=== PATIENT | female | born 1975 ===

== ENCOUNTER 2020-07-10 13:07 | Outpatient (REF) | payer OTHER, SELFPAY ==
[2020-07-10 13:31] LABS: COVID-19 Test Negative (Negative); IDNOW Serial# 55D5AD1C
== END 2020-07-10 13:08 | disposition home or self-care (01) ==
LOC: HO.EMPCOV 13:07
PROVIDERS: Visit Provider Internal Medicine
DX: Z20.828 Contact with and (suspected) exposure to other viral communicable diseases (principal)
CPT/HCPCS: 87635; C9803

== ENCOUNTER 2020-07-13 11:34 | Outpatient (REF) | payer OTHER, SELFPAY ==
[2020-07-13 12:01] LABS: COVID-19 Test Negative (Negative)
== END 2020-07-13 11:35 | disposition home or self-care (01) ==
LOC: HO.EMPCOV 11:34
PROVIDERS: PCP Internal Medicine; Visit Provider Internal Medicine
DX: Z20.828 Contact with and (suspected) exposure to other viral communicable diseases (principal)
CPT/HCPCS: 87635; C9803

== ENCOUNTER 2020-11-12 11:35 | Outpatient (REF) | payer OTHER, SELFPAY ==
[2020-11-12 11:55] LABS: COVID-19 Test Negative (Negative); IDNOW Serial# 55D5AD1C
== END 2020-11-12 11:36 | disposition home or self-care (01) ==
LOC: HO.EMPCOV 11:35
PROVIDERS: Visit Provider Internal Medicine
DX: Z20.822 Contact with and (suspected) exposure to COVID-19 (principal)
CPT/HCPCS: 36415; 87635; C9803

== ENCOUNTER 2020-12-11 14:48 | Outpatient (REF) | payer OTHER, SELFPAY | END 2020-12-11 14:49 | disposition home or self-care (01) | LOC: HO.LAB 14:48 | PROVIDERS: Visit Provider Internal Medicine | DX: Z20.822 Contact with and (suspected) exposure to COVID-19 (principal) | CPT/HCPCS: C9803; U0003; U0005 ==

== ENCOUNTER 2021-04-02 08:24 | Outpatient (REF) | payer OTHER, SELFPAY ==
[2021-04-02 10:13] LABS: MANUAL DIFF FLAG NO
[2021-04-02 10:19] LABS: Basophils Percent Auto 0.3 % (0-2); Eosinophils Absolute Auto 0.1 X10*3/uL (0.0-0.4); Eosinophils Percent Auto 1.6 % (0-4); Imm Gran Abs Auto 0.01 X10*3/uL (0.00-0.03); Imm Gran Pct Auto 0.3 % (0.0-0.4); Lymphocytes Absolute Auto 0.6 X10*3/uL (1.2-4.9); Lymphocytes Percent Auto 19.9 % (20-40); Mean Corpuscular HGB Conc 31.3 g/dl (31.0-35.0); Mean Corpuscular Hemoglobin 32.3 pg (27.0-33.0); Mean Corpuscular Volume 103.1 fL (80-98); Mean Platelet Volume 12.7 fL (9.4-12.3); Monocytes Absolute Auto 0.2 X10*3/uL (0.1-1.2); Monocytes Percent Auto 6.5 % (2-11); Neutrophils Absolute Auto 2.3 X10*3/uL (2.0-8.3); Neutrophils Percent Auto 71.4 % (45-73); Platelet Count 167 X10*3/uL (160-400); Red Blood Count 1.95 X10*6/uL (4.20-5.50); Red Cell Distribution Width 16.8 % (11.0-16.0); White Blood Count 3.2 X10*3/uL (4.8-10.8)
[2021-04-02 10:29] LABS: Estimated Average Glucose 97 mg/dL
[2021-04-02 10:47] LABS: Hemoglobin 6.3 g/dl (12.0-16.0)
[2021-04-02 10:48] LABS: Hematocrit 20.1 % (37-47)
[2021-04-02 10:55] LABS: Creatinine Urine 231.34 mg/dL; Microalbum/Creatinine Ratio Ur 12.1 ug/mg cr
[2021-04-02 10:57] LABS: Alanine Aminotransferase 13 U/L (0-31); Albumin Level 3.3 g/dL (3.5-5.0); Alkaline Phosphatase 46 U/L (39-117); Anion Gap 9 (12-20); Aspartate Amino Transferase 18 U/L (5-31); Bilirubin Total 0.2 mg/dL (0.0-1.0); Blood Urea Nitrogen 13 mg/dL (9-16); Calcium 7.8 mg/dL (8.4-10.2); Carbon Dioxide 23 mmol/L (22-29); Chloride 112 mmol/L (96-108); Estimated Glomerular Filt Rate > 60; Glucose Random 126 mg/dL (60-115); Iron 44 mcg/dL (30-160); Sodium 140 mmol/L (135-145); Total Protein 5.2 g/dL (6.5-8.0)
[2021-04-02 10:58] LABS: Percent Iron Saturation 20 % (15-50); Total Iron Binding Capacity 221 mcg/dL (228-428); Unsaturated Iron Binding 177 ug/dL
[2021-04-02 11:14] LABS: Ferritin 47 ng/mL (10-250)
== END 2021-04-02 08:25 | disposition home or self-care (01) ==
LOC: HO.LAB 08:24
PROVIDERS: Absent Provider Internal Medicine; PCP Internal Medicine; Visit Provider Internal Medicine
DX: E55.9 Vitamin D deficiency, unspecified (principal); D50.0 Iron deficiency anemia secondary to blood loss (chronic); E10.649 Type 1 diabetes mellitus with hypoglycemia without coma
CPT/HCPCS: 36415; 80053; 82043; 82306; 82728; 83036; 83540; 85025

== ENCOUNTER 2021-04-02 16:22 | Emergency (ER) | payer OTHER, SELFPAY ==
[2021-04-02] VITALS (8 sets, daily range): BP systolic 90–123; BP diastolic 49–68; PULSE 67–89; RESP 16–18; TEMP 36.7–37.1; O2SAT 100; BMI 18.6
--- NOTE | ~2021-04-02 | US_ITS ---
EXAMINATION:US pelvic and transvaginal CLINICAL INFORMATION: Reason for Exam bleeding x 2.5 weeks, anemia 6.6 COMPARISON: No priors available. LMP: 2 weeks ago FINDINGS: UTERUS: The uterus is anteverted. Size: 10.4 x 5.9 x 6.6 cm. Uterine mass: There is no uterine mass. Cervix: There are probably nabothian cysts otherwise Grossly unremarkable. Endometrium: No ultrasound evidence of endometrial lesion. Hypertrophic endometrial thickness measures 6.2 cm. ADNEXA: Normal Right ovary: Right ovary not visualized might have been obscured by bowel gas. Left ovary: Normal in size. Doppler exam: Normal Doppler flow identified in both ovaries. FREE FLUID: Trace amount of free fluid. OTHER FINDINGS: None US/US pelvic and transvaginal IMPRESSION: Physiologically hypertrophic endometrium 2.2 cm. Right ovary not visualized might have been obscured by bowel gas.
--- NOTE | 2021-04-02 18:14 | ECG_ITS ---
Test Reason : DIZZYNESS Blood Pressure : / mmHG Vent. Rate : 078 BPM Atrial Rate : 078 BPM P-R Int : 162 ms QRS Dur : 078 ms QT Int : 372 ms P-R-T Axes : 065 040 046 degrees QTc Int : 424 ms Normal sinus rhythm with sinus arrhythmia Normal ECG No previous ECGs available Referred By: Ailyn Oneill Electronically Signed By:Lalit Lew
--- NOTE | 2021-04-02 18:15 | ED.FEMALEGU ---
HPI - Female Genitourinary General Chief complaint: Vaginal Bleeding Stated complaint: heavy bleeding Time Seen by Provider: 04/02/21 18:13 Source: patient and old records reviewed Mode of arrival: ambulatory Limitations: no limitations History of Present Illness HPI Narrative: 45 yo female with hx of FE deficiency anemia, DM c/o heavy vaginal bleeding x 2.5 weeks although today is much less, no prior bouts like this, found out her Hgb was 6.6 today c/o fatigue, weakness MD elicited complaint: vaginal bleeding Onset (ago): week(s) (2.5) Location of symptoms: vaginal Severity: severe Quality of pain: cramping Consistency: constant Vaginal bleeding: moderate, heavy and clots Exacerbating factors: none Relieving factors: none Associated symptoms: headaches and weakness Treatment prior to arrival: none Related Data Home Medications Medication Instructions Recorded Confirmed cholecalciferol (vitamin D3) 25 25 mcg PO DAILY 11/23/20 mcg (1,000 unit) capsule ferrous fumarate 325 mg (106 mg 325 mg PO DAILY 11/23/20 iron) tablet insulin lispro 100 unit/mL 70 unit SUBCUT 11/23/20 subcutaneous solution multivitamin 1 tab PO DAILY 11/23/20 Previous Rx's Medication Instructions Recorded diclofenac sodium 1 % topical gel 2 g TOPICAL QID PRN #100 g 11/23/20 triamcinolone acetonide 0.1 % 1 appl TOPICAL DAILY 10 Days #30 g 11/26/20 topical cream medroxyprogesterone 10 mg tablet 10 mg PO DAILY 9 Days #9 tab 04/03/21 (Provera) Allergies Allergy/AdvReac Type Severity Reaction Status Date / Time No Known Allergies Allergy Verified 04/02/21 17:02 Review of Systems Review of Systems: Constitutional : No Weight loss, No Fever, No Chills, No Fatigue, No Malaise ENT/Mouth : No sore throat, No Rhinorrhea Eyes: No Eye Pain, No Swelling, No Redness Cardiovascular : No Chest Pain, pos SOB, No Dyspnea on Exertion, No Orthopnea, No Edema, No Palpitations Respiratory : No Cough, No Sputum, No Wheezing Gastrointestinal : pos Nausea, No Vomiting, No Diarrhea, No Constipation, No abdominal Pain, No Hematochezia, No Melena Genitourinary : No Dysuria, No Urinary Frequency, No Hematuria, pos vag bleeding Musculoskeletal : No joint pain, No Myalgias, No Joint Swelling Skin : No Skin Lesions, No rash Neuro : pos Weakness, No Numbness, No Dizziness, No Headache Psych : No Anxiety/Panic, No Depression Heme/Lymph: No Bruising, No Bleeding,No Lymphadenopathy Endocrine : No Polyuria, No Polydipsia All other systems reviewed and are negative [facility] Past Medical History Attestation statement: The following information was validated with the patient. Medical History Diabetes mellitus, insulin dependent (IDDM), controlled Eczema of both hands Iron deficiency anemia Shoulder pain, right Surgical History No significant past surgical history Family History Family History Father Hx of diabetes mellitus History of hypertension Hx of hyperlipidemia Mother History of hypertension Hx of diabetes mellitus Hx of hyperlipidemia Social History Social History (Updated 04/02/21 @ 18:32 by Ailyn Oneill DO) Alcohol intake: never Patient Tobacco Use Status: Never used Tobacco Advance Directives: No Advance Directives Information Provided: No Patient : No Physical Exam Vital Signs: Vital Signs: Last Vital Signs Temp 98.1 F 04/03/21 00:09 Pulse 69 04/03/21 00:09 Resp 16 04/03/21 00:09 BP 97/54 L 04/03/21 00:09 Pulse Ox 100 04/03/21 00:09 Body Mass Index 18.6 Appearance: Alert. Oriented X3. No acute distress. Eyes: Pupils equal, round and reactive to light. ENT: Pharynx normal. Neck: Normal inspection. Neck supple. CVS: Normal heart rate and rhythm. Pulses normal. Respiratory: No respiratory distress. Breath sounds normal. Abdomen: Soft and nontender. : deferred as the bleeding has stopped Skin: Skin warm and dry. pale skin color. Normal skin turgor. Extremities: No lower extremity edema. No calf ttp Neuro: Oriented X 3. No motor deficit. No sensory deficit. Course Course Course Narrative: feels much better, offered admission but she refuses hemoglobin up to 8.3 patient wants to go home, hospitalist did offer admission but it was declined plans for hematology follow up MDM - Female Genitourinary MDM Narrative Medical decision making narrative: 45 yo female with hx of FE deficiency anemia, DM c/o heavy vaginal bleeding x 2.5 weeks although today is much less, no prior bouts like this, found out her Hgb was 6.6 today c/o fatigue, weakness at this time 2 units of PRBC ordered, EKG, US to evaluate for fibroids/irregular endometrium, IVF, EKG, dispo per results and findings, she notes that the bleeding has improved. Dispo per results and findings, may improve with transfusion and then start on provera Lab Data Result diagrams: 04/03/21 01:21 Labs: Lab Results 04/02/21 04/03/21 Range/Units 17:11 01:21 Hgb 8.3 L D (12.0-16.0) g/dl Blood Type A Positive Antibody Screen NEGATIVE Crossmatch See Detail ECG Data Attestation: I personally reviewed and interpreted this ECG as follows: ECG interpretation date: 04/02/21 ECG interpretation time: 19:57 Interpretation: Rate: 78 Rhythm: NSR [place]: normal Normal P waves. Normal MIKE. Normal QRS complex. ST T wave : normal no DAVEY qTC: normal prior studies: no acute ischemia The study has been interpreted contemporaneously by me. . Critical Care Time Critical Care Time Critical Care Time: Yes Total Critical Care Time: 35 Attestation: 2 units of blood transfusion I attest to this time spent taking care of the patient Discharge Plan Discharge Clinical Impression: Menometrorrhagia, Anemia Patient Disposition: Home, Self-Care Instructions: Dysfunctional Uterine Bleeding (ED), Anemia (ED) Additional Instructions: return to ED for any worsening symptoms or concerns CONTINUE IRON SUPPLEMENTATION YOU NEED TO SEE YOUR PRIMARY CARE DOCTOR TO FOLLOW YOUR BLOOD COUNTS AND OBGYN Prescriptions: New medroxyprogesterone [Provera] 10 mg tablet 10 mg PO DAILY 9 Days Qty: 9 RF: 0 No Action insulin lispro 100 unit/mL solution 70 unit subcut RF: 0 ferrous fumarate 325 mg (106 mg iron) tablet 325 mg PO DAILY RF: 0 multivitamin Tablet 1 tab PO DAILY RF: 0 cholecalciferol (vitamin D3) 25 mcg (1,000 unit) capsule 25 mcg PO DAILY RF: 0 diclofenac sodium 1 % gel 2 g topical QID PRN (Reason: joint pain) Qty: 100 RF: 1 triamcinolone acetonide 0.1 % cream 1 appl topical DAILY 10 Days Qty: 30 RF: 0
--- NOTE | 2021-04-02 19:05 | PC.NURSE ---
REPORT TAKEN FROM JESSICA BUSCH, PT OFF FLOOR TO US. AWAITING RETURN FOR BLOOD TRANSFUSION.
--- NOTE | 2021-04-02 20:10 | PC.NURSE ---
PT RETURNED FROM US, A&Ox3 SKIN PWD RESPIRATIONS EVEN UNLABORED, REPORTS FEELING TIRED, DENIES PAIN. REPORTS CHANGING TAMPON x3 SINCE 0700 THIS MORNING. STATES BLEEDING IMPROVED FROM PREVIOUS DAYS. AWAITING BLOOD FOR TRANSFUSION-CONSENT SIGNED IN CHART, AWARE OF PLAN OF CARE.
[2021-04-02] MEDS: medroxyPROGESTERone Acetate 5 MG TABLET 10 MG PO (20:15)
--- NOTE | 2021-04-02 20:34 | PC.NURSE ---
BLOOD TRANSFUSION INITIATED, NO S/S TRANSFUSION REACTION AT THIS TIME. VSS. SKIN PWD RESPIRATIONS EVEN UNLABORED. WILL CONTINUE TO MONITOR.
--- NOTE | 2021-04-02 22:54 | PC.NURSE ---
PT AMB TO BATHROOM WITH STEADY GAIT, REPORTS CONTINUED FATIGUE. SECOND UNIT OF BLOOD HUNG AND TRANSFUSING WITH NO S/S REACTION. VSS.
[2021-04-03 00:07] VITALS: BP 97/54; PULSE 69; RESP 16
[2021-04-03 00:09] VITALS: BP 97/54; PULSE 69; RESP 16; TEMP 36.7; O2SAT 100
[2021-04-03 01:26] LABS: Hemoglobin 8.3 g/dl (12.0-16.0)
== END 2021-04-03 02:19 | disposition home or self-care (01) ==
PROVIDERS: Emergency Provider Emergency Medicine; PCP Internal Medicine
DX: D50.9 Iron deficiency anemia, unspecified (principal); N92.1 Excessive and frequent menstruation with irregular cycle; E11.9 Type 2 diabetes mellitus without complications; Z79.4 Long term (current) use of insulin; Z79.899 Other long term (current) drug therapy
CPT/HCPCS: 36415; 36430; 76830; 76856; 85018; 86850; 86900; 86901; 86923; 93005; 99285; 99291; P9016

== ENCOUNTER → 2021-04-06 07:50 | Outpatient (BNV) | payer OTHER, SELFPAY | PROVIDERS: PCP Internal Medicine; Visit Provider Internal Medicine Medical Oncology | DX: D50.9 Iron deficiency anemia, unspecified (principal) | CPT/HCPCS: 99203; 99213 ==

== ENCOUNTER 2021-04-06 08:47 | Outpatient (REF) | payer OTHER, SELFPAY ==
[2021-04-06 09:50] LABS: MANUAL DIFF FLAG NO
[2021-04-06 10:04] LABS: Basophils Percent Auto 0.3 % (0-2); Eosinophils Percent Auto 0.8 % (0-4); Hematocrit 29.4 % (37-47); Hemoglobin 9.4 g/dl (12.0-16.0); Imm Gran Abs Auto 0.01 X10*3/uL (0.00-0.03); Imm Gran Pct Auto 0.3 % (0.0-0.4); Immature Retic Fraction 19.7 % (3.0-15.9); Lymphocytes Absolute Auto 0.6 X10*3/uL (1.2-4.9); Mean Corpuscular Hemoglobin 32.1 pg (27.0-33.0); Mean Corpuscular Volume 100.3 fL (80-98); Monocytes Absolute Auto 0.3 X10*3/uL (0.1-1.2); Monocytes Percent Auto 8.7 % (2-11); Neutrophils Absolute Auto 2.6 X10*3/uL (2.0-8.3); Neutrophils Percent Auto 72.9 % (45-73); Platelet Count 184 X10*3/uL (160-400); Red Blood Count 2.93 X10*6/uL (4.20-5.50); Red Cell Distribution Width 18.2 % (11.0-16.0); Retic HGB Equivalent 34.9 pg (30.0-35.0); Reticulocyte Percent 7.8 % (0.5-1.8); White Blood Count 3.6 X10*3/uL (4.8-10.8)
[2021-04-06 10:17] LABS: Lactate Dehydrogenase 179 U/L (122-220)
[2021-04-06 10:39] LABS: Thyroid Stimulating Hormone 1.22 uIU/mL (0.32-4.0)
[2021-04-06 10:54] LABS: Folate 10.3 ng/mL (> or = 4.0); Vitamin B12 472 pg/mL (200-900)
[2021-04-13 07:14] LABS: Prometheus Celiac Genetics SEE SEPERATE REPORT
== END 2021-04-06 08:48 | disposition home or self-care (01) ==
LOC: HO.MDS 08:47
PROVIDERS: Visit Provider Internal Medicine Medical Oncology
DX: D50.9 Iron deficiency anemia, unspecified (principal)
CPT/HCPCS: 36415; 81382; 82607; 82746; 83615; 84443; 85025; 85045; 96365; 96375; J1439; J2405

== ENCOUNTER 2021-04-12 14:38 | Outpatient (REF) | payer OTHER, SELFPAY ==
[2021-04-13 10:59] LABS: CT PCR NOT DETECTED (Not Detect.); NG PCR NOT DETECTED (Not Detect.)
[2021-04-14 23:41] LABS: HPV mRNA E6/E7 rflx Not Detected (Not Detected)
== END 2021-04-12 14:39 | disposition home or self-care (01) ==
LOC: HO.LAB 14:38
PROVIDERS: PCP Internal Medicine; Visit Provider Obstetrics & Gynecology
DX: Z01.419 Encounter for gynecological examination (general) (routine) without abnormal findings (principal); N93.8 Other specified abnormal uterine and vaginal bleeding; Z79.899 Other long term (current) drug therapy
CPT/HCPCS: 58100; 58300; 87491; 87591; 87624; 88142; 88305; J7298

== ENCOUNTER 2021-04-16 13:03 | Outpatient (REF) | payer OTHER, SELFPAY | END 2021-04-16 13:04 | disposition home or self-care (01) | LOC: HO.MDS 13:03 | PROVIDERS: PCP Internal Medicine; Visit Provider Internal Medicine Medical Oncology | DX: D50.9 Iron deficiency anemia, unspecified (principal) | CPT/HCPCS: 96365; J1439; J2405 ==

== ENCOUNTER → 2021-04-26 15:49 | Outpatient (BNVA) | payer OTHER, SELFPAY | PROVIDERS: Visit Provider Obstetrics & Gynecology ==

== ENCOUNTER 2021-05-07 08:03 | Outpatient (REF) | payer OTHER, SELFPAY ==
[2021-05-07 09:17] LABS: MANUAL DIFF FLAG SCAN; Monocytes Absolute Auto 0.2 X10*3/uL (0.1-1.2); SCAN SMEAR FLAG 1
[2021-05-07 09:19] LABS: Basophils Percent Auto 0.4 % (0-2); Eosinophils Percent Auto 1.6 % (0-4); Hematocrit 37.9 % (37-47); Hemoglobin 12.4 g/dl (12.0-16.0); Lymphocytes Absolute Auto 0.6 X10*3/uL (1.2-4.9); Lymphocytes Percent Auto 23.5 % (20-40); Mean Corpuscular HGB Conc 32.7 g/dl (31.0-35.0); Mean Corpuscular Hemoglobin 33.3 pg (27.0-33.0); Mean Corpuscular Volume 101.9 fL (80-98); Mean Platelet Volume 13.3 fL (9.4-12.3); Monocytes Percent Auto 6.3 % (2-11); Neutrophils Absolute Auto 1.7 X10*3/uL (2.0-8.3); Neutrophils Percent Auto 68.2 % (45-73); Platelet Count 120 X10*3/uL (160-400); Red Blood Count 3.72 X10*6/uL (4.20-5.50); White Blood Count 2.6 X10*3/uL (4.8-10.8)
[2021-05-07 09:20] LABS: PLT ABN DIST 1
[2021-05-07 09:27] LABS: Estimated Average Glucose 82 mg/dL; Hemoglobin A1c % 4.5 %
[2021-05-07 09:34] LABS: Creatinine Urine 147.66 mg/dL
[2021-05-07 09:39] LABS: Cholesterol 162 mg/dL; HDL Cholesterol 59 mg/dL; Iron 80 mcg/dL (30-160); LDL Cholesterol Calculated 95 mg/dl; Percent Iron Saturation 34 % (15-50); Total Iron Binding Capacity 236 mcg/dL (228-428); Triglycerides 40 mg/dL; Unsaturated Iron Binding 156 ug/dL
[2021-05-07 09:46] LABS: SLIDE REVIEW VERIFIED
[2021-05-07 09:47] LABS: Alanine Aminotransferase 10 U/L (0-31); Alkaline Phosphatase 59 U/L (39-117); Anion Gap 9 (12-20); Aspartate Amino Transferase 13 U/L (5-31); Bilirubin Total 0.4 mg/dL (0.0-1.0); Blood Urea Nitrogen 15 mg/dL (9-16); Calcium 8.8 mg/dL (8.4-10.2); Carbon Dioxide 26 mmol/L (22-29); Chloride 109 mmol/L (96-108); Estimated Glomerular Filt Rate > 60; Glucose Random 128 mg/dL (60-115); Potassium 4.2 mmol/L (3.3-5.1); Sodium 140 mmol/L (135-145); Total Protein 6.1 g/dL (6.5-8.0)
[2021-05-07 10:02] LABS: Ferritin 165 ng/mL (10-250)
[2021-05-07 10:03] LABS: TSH reflex Free T4 0.89 uIU/mL (0.32-4.0)
[2021-05-07 10:20] LABS: Folate 12.5 ng/mL (> or = 4.0); Vitamin B12 513 pg/mL (200-900)
[2021-05-11 14:46] LABS: Transglutaminase IgA 1 U/mL
== END 2021-05-07 08:04 | disposition home or self-care (01) ==
LOC: HO.LAB 08:03
PROVIDERS: Absent Provider Internal Medicine Medical Oncology; PCP Internal Medicine; Referring Provider Obstetrics & Gynecology; Visit Provider Internal Medicine
DX: D50.9 Iron deficiency anemia, unspecified (principal); L30.9 Dermatitis, unspecified
CPT/HCPCS: 36415; 80053; 80061; 82043; 82306; 82607; 82728; 82746; 83036; 83516; 83540; 84443; 85025

== ENCOUNTER 2021-05-18 08:14 | Outpatient (REF) | payer OTHER, SELFPAY | END 2021-05-18 08:15 | disposition home or self-care (01) | LOC: HO.LAB 08:14 | PROVIDERS: PCP Internal Medicine; Visit Provider Obstetrics & Gynecology | DX: Z30.431 Encounter for routine checking of intrauterine contraceptive device (principal); R87.615 Unsatisfactory cytologic smear of cervix; N93.8 Other specified abnormal uterine and vaginal bleeding | CPT/HCPCS: 88142 ==

== ENCOUNTER 2021-06-21 14:39 | Outpatient (REF) | payer OTHER, SELFPAY ==
--- NOTE | ~2021-06-21 | MM_ITS ---
EXAMINATION: MM SCREENING DIGITAL BREAST TOMOSYNTHESIS, BILATERAL CLINICAL INFORMATION: Screening. Asymptomatic. The lifetime risk of breast cancer based on the Tyrer-Cuzick Model is 14.3%. COMPARISON: Mammography: None TECHNIQUE: Digital breast tomosynthesis is performed in both the craniocaudal and mediolateral oblique views along with computer-aided detection (CAD). Synthesized 2D images are generated from the tomosynthesis. FINDINGS: The breasts are extremely dense, which lowers the sensitivity of mammography (ACR BI-RADS breast composition Category d). There are some vascular calcifications noted within the left breast seen with tomosynthesis. There is a questioned mass deep medial aspect on craniocaudal view of the right breast most likely representing sternalis muscle; however, there is some lobulation to the visualized portions of its margin and therefore, patient will be recalled for repeat craniocaudal view and cleavage view of the right breast. MM/MM tomosynthesis screening BI IMPRESSION: Probable sternalis muscle right breast for further evaluation as described. ASSESSMENT: BI-RADS 0: Incomplete - Need Additional Imaging Evaluation RECOMMENDATION: 1. Additional views of the right breast. 2. Targeted ultrasound if warranted after review of the additional views. 3. Radiology department staff will contact the patient for additional imaging. This patient's information was entered into a reminder system with a target due date for their next mammogram.
== END 2021-06-21 14:40 | disposition home or self-care (01) ==
LOC: HO.MAMMO 14:39
PROVIDERS: PCP Internal Medicine; Visit Provider Obstetrics & Gynecology
DX: Z12.31 Encounter for screening mammogram for malignant neoplasm of breast (principal)
CPT/HCPCS: 77063; 77067

== ENCOUNTER 2021-06-30 07:54 | Outpatient (REF) | payer OTHER, SELFPAY ==
--- NOTE | ~2021-06-30 | MM_ITS ---
EXAMINATION: MM DIAGNOSTIC DIGITAL BREAST TOMOSYNTHESIS, RIGHT US DIAGNOSTIC ULTRASOUND BREAST, RIGHT CLINICAL INFORMATION: Recall from screening for question of asymmetric density posterior medial right breast. TC Score 14%. COMPARISON: Mammography: 06/21/2021 TECHNIQUE: Digital breast tomosynthesis is performed. 2D images are generated from the tomosynthesis. The following views are obtained: CC, cleavage, spot CC Ultrasound right breast is targeted to the posterior medial breast 2:00 through 6:00 position. Grayscale imaging and color Doppler are performed without and with harmonics. FINDINGS: The breasts are heterogeneously dense, which may obscure small masses (ACR BI-RADS breast composition Category c). The additional views show no underlying mass or architectural abnormality. In retrospect, the asymmetric density suggested on synthesized right CC screening view shows no correlate on tomography. Ultrasound shows no cystic or solid mass, architectural abnormality, or chest wall lesion. Results are discussed with the patient at time of visit. MM/MM tomosynthesis added views R IMPRESSION: Additional views show normal fibroglandular tissue. Unremarkable targeted right breast ultrasound. ASSESSMENT: BI-RADS 1: Negative RECOMMENDATION: Routine annual mammography screening. This patient's information was entered into a reminder system with a target due date for their next mammogram.
== END 2021-06-30 07:55 | disposition home or self-care (01) ==
LOC: HO.MAMMO 07:54
PROVIDERS: PCP Internal Medicine; Visit Provider Obstetrics & Gynecology
DX: R92.2 Inconclusive mammogram (principal)
CPT/HCPCS: 76642; 77061; 77065

== ENCOUNTER 2022-05-19 08:42 | Outpatient (REF) | payer OTHER, SELFPAY ==
[2022-05-19 19:50] LABS: CT PCR NOT DETECTED (Not Detect.); NG PCR NOT DETECTED (Not Detect.)
== END 2022-05-19 08:43 | disposition home or self-care (01) ==
LOC: HO.LNP 08:42
PROVIDERS: Visit Provider Obstetrics & Gynecology
DX: Z11.3 Encounter for screening for infections with a predominantly sexual mode of transmission (principal); R10.2 Pelvic and perineal pain
CPT/HCPCS: 81025; 87491; 87591

== ENCOUNTER 2022-05-27 14:13 | Outpatient (REF) | payer OTHER, SELFPAY ==
--- NOTE | ~2022-05-27 | US_ITS ---
EXAMINATION: US PELVIS CLINICAL INFORMATION: Pelvic and perineal pain; the last menstrual period was on 05/21/2022. COMPARISON: None TECHNIQUE: Ultrasound of the pelvis is performed using both transabdominal and transvaginal transducers along with Doppler. Transvaginal imaging is performed due to inadequate visualization transabdominally. FINDINGS: UTERUS: The uterus is anteverted and anteflexed. The uterus measures 9.8 x 5.7 x 5.3 cm. Nabothian cysts are seen within the cervix. The double wall endometrial thickness is 0.6 mm. An intrauterine device is seen, properly situated within the endometrial canal. The uterus is smooth in contour and has normal myometrial echogenicity. No visible fibroid. Fibroids: There is 1 fibroid seen. 1. Location: Upper rightward uterine body. Size: 0.6 x 0.6 x 0.6 cm. Fibroid characteristics: Hypoechoic. ADNEXA: The right ovary is not visualized. The left ovary is normal in echotexture, measuring 7.2 x 4.4 x 4.5 cm (volume 75.3 mL). The left ovary contains dominant 3.4 x 4.4 x 4.1 cm and 3.8 x 2.5 x 3.2 cm anechoic, simple cysts. There is normal color flow to the adnexa. There is no ovarian torsion. There is no pelvic ascites or fluid collection. US/US pelvic and transvaginal IMPRESSION: 1. There are benign, simple left ovarian cysts, as detailed. No ultrasound followup is recommended. 2. The right ovary is not visualized. 3. An intrauterine device is seen, properly situated within the endometrial canal. 4. A small uterine fibroid is seen. 5. Nabothian cysts are seen within the cervix.
== END 2022-05-27 14:14 | disposition home or self-care (01) ==
LOC: HO.US 14:13
PROVIDERS: Visit Provider Obstetrics & Gynecology
DX: R10.2 Pelvic and perineal pain (principal)
CPT/HCPCS: 76830; 76856

== ENCOUNTER 2022-06-15 10:35 | Outpatient (REF) | payer OTHER, SELFPAY ==
[2022-06-15 14:20] LABS: Hematocrit 40.7 % (37.0-47.0); Hemoglobin 13.5 g/dl (12.0-16.0); Mean Corpuscular HGB Conc 33.2 g/dl (31.0-35.0); Mean Corpuscular Hemoglobin 31.4 pg (27.0-33.0); Mean Corpuscular Volume 94.7 fL (80.0-98.0); Mean Platelet Volume 12.7 fL (9.4-12.3); Platelet Count 140 X10*3/uL (160-400); White Blood Count 4.3 X10*3/uL (4.8-10.8)
== END 2022-06-15 10:36 | disposition home or self-care (01) ==
LOC: HO.10HDL 10:35
PROVIDERS: Visit Provider Obstetrics & Gynecology
DX: N93.8 Other specified abnormal uterine and vaginal bleeding (principal)
CPT/HCPCS: 36415; 85027

== ENCOUNTER 2022-06-24 08:04 | Outpatient (REF) | payer OTHER, SELFPAY ==
[2022-06-24 08:19] LABS: MANUAL DIFF FLAG NO
[2022-06-24 08:41] LABS: Basophils Percent Auto 0.6 % (0-2); Eosinophils Absolute Auto 0.1 X10*3/uL (0.0-0.4); Eosinophils Percent Auto 2.2 % (0-4); Hemoglobin 13.7 g/dl (12.0-16.0); Imm Gran Abs Auto 0.01 X10*3/uL (0.00-0.03); Imm Gran Pct Auto 0.3 % (0.0-0.4); Lymphocytes Absolute Auto 0.9 X10*3/uL (1.2-4.9); Lymphocytes Percent Auto 28.5 % (20-40); Mean Corpuscular HGB Conc 33.4 g/dl (31.0-35.0); Mean Corpuscular Hemoglobin 31.6 pg (27.0-33.0); Mean Corpuscular Volume 94.5 fL (80.0-98.0); Monocytes Absolute Auto 0.3 X10*3/uL (0.1-1.2); Monocytes Percent Auto 10.1 % (2-11); Neutrophils Absolute Auto 1.8 x10*3/uL (2.0-8.3); Neutrophils Percent Auto 58.3 % (45-73); Platelet Count 144 X10*3/uL (160-400); Red Blood Count 4.34 X10*6/uL (4.20-5.50); Red Cell Distribution Width 11.8 % (11.0-16.0); White Blood Count 3.2 X10*3/uL (4.8-10.8)
[2022-06-24 08:50] LABS: Estimated Average Glucose 120 mg/dL; Hemoglobin A1c % 5.8 %
[2022-06-24 09:08] LABS: Alanine Aminotransferase 9 U/L (0-31); Albumin Level 4.1 g/dL (3.5-5.0); Alkaline Phosphatase 60 U/L (39-117); Anion Gap 12 (12-20); Aspartate Amino Transferase 16 U/L (5-31); Bilirubin Total 0.3 mg/dL (0.0-1.0); Blood Urea Nitrogen 13 mg/dL (9-16); Carbon Dioxide 27 mmol/L (22-29); Chloride 106 mmol/L (96-108); Cholesterol 190 mg/dL; Estimated Glomerular Filt Rate > 60; Glucose Random 143 mg/dL (60-115); HDL Cholesterol 63 mg/dL; LDL Cholesterol Calculated 119 mg/dl; Potassium 4.4 mmol/L (3.3-5.1); Sodium 141 mmol/L (135-145); Total Protein 6.9 g/dL (6.5-8.0); Triglycerides 41 mg/dL
[2022-06-24 09:23] LABS: TSH reflex Free T4 1.05 uIU/mL (0.32-4.0); Vitamin D 25-OH Total 44.7 ng/mL (>30)
== END 2022-06-24 08:05 | disposition home or self-care (01) ==
LOC: HO.LAB 08:04
PROVIDERS: PCP Internal Medicine; Visit Provider Internal Medicine
DX: E10.649 Type 1 diabetes mellitus with hypoglycemia without coma (principal)
CPT/HCPCS: 36415; 80053; 80061; 82306; 83036; 84443; 85025

== ENCOUNTER 2022-07-27 14:28 | Outpatient (REF) | payer OTHER, SELFPAY ==
[2022-07-27 15:36] LABS: C Reactive Protein < 0.04 mg/dL (< or = 0.50)
[2022-07-27 15:54] LABS: Erythrocyte Sedimentation Rate 10 MM/HR (0-20)
[2022-07-27 22:57] LABS: Creatinine Urine 92.51 mg/dL; Total Protein Urine Random < 7 mg/dL (<12)
[2022-07-29 21:13] LABS: Anti DNA DS Antibody 2 IU/mL; Antibody to SS-A Antigen <1.0 NEG AI (<1.0 NEG); Antibody to SS-B Antigen <1.0 NEG AI (<1.0 NEG); SM/Ribonucleoprotein Ab <1.0 NEG AI (<1.0 NEG); Smith Protein <1.0 NEG AI (<1.0 NEG)
== END 2022-07-27 14:29 | disposition home or self-care (01) ==
LOC: HO.LAB 14:28
PROVIDERS: PCP Internal Medicine; Visit Provider Internal Medicine Rheumatology
DX: D69.6 Thrombocytopenia, unspecified (principal); M25.9 Joint disorder, unspecified
CPT/HCPCS: 36415; 84156; 85652; 86140; 86225; 86235

== ENCOUNTER 2023-03-09 12:06 | Outpatient (REF) | payer OTHER, SELFPAY ==
[2023-03-09 13:01] LABS: COVID-19 Test Negative (Negative); IDNOW Serial# 08D9AD1C
[2023-03-09 13:44] LABS: Basophils Percent Auto 0.4 % (0-2); Eosinophils Absolute Auto 0.1 X10*3/uL (0.0-0.4); Eosinophils Percent Auto 1.7 % (0-4); Hematocrit 38.7 % (37.0-47.0); Hemoglobin 12.8 g/dl (12.0-16.0); Imm Gran Abs Auto 0.01 X10*3/uL (0.00-0.03); Imm Gran Pct Auto 0.2 % (0.0-0.4); Lymphocytes Absolute Auto 0.7 X10*3/uL (1.2-4.9); Lymphocytes Percent Auto 15.6 % (20-40); MANUAL DIFF FLAG SCAN; Mean Corpuscular HGB Conc 33.1 g/dl (31.0-35.0); Mean Corpuscular Hemoglobin 30.7 pg (27.0-33.0); Mean Corpuscular Volume 92.8 fL (80.0-98.0); Monocytes Absolute Auto 0.6 X10*3/uL (0.1-1.2); Monocytes Percent Auto 12.4 % (2-11); Neutrophils Absolute Auto 3.2 x10*3/uL (2.0-8.3); Neutrophils Percent Auto 69.7 % (45-73); PLT CLUMP 1; Red Blood Count 4.17 X10*6/uL (4.20-5.50); Red Cell Distribution Width 12.7 % (11.0-16.0); SCAN SMEAR FLAG 1
[2023-03-09 13:46] LABS: White Blood Count 4.6 X10*3/uL (4.8-10.8)
[2023-03-09 14:26] LABS: Alanine Aminotransferase 11 U/L (0-31); Albumin Level 3.8 g/dL (3.5-5.0); Alkaline Phosphatase 69 U/L (39-117); Anion Gap 12 (12-20); Aspartate Amino Transferase 15 U/L (5-31); Bilirubin Total 0.4 mg/dL (0.0-1.0); Blood Urea Nitrogen 16 mg/dL (9-16); Calcium 9.5 mg/dL (8.4-10.2); Carbon Dioxide 25 mmol/L (22-29); Chloride 106 mmol/L (96-108); Cholesterol 183 mg/dL; Estimated Glomerular Filt Rate > 60; Glucose Random 154 mg/dL (60-115); HDL Cholesterol 64 mg/dL; LDL Cholesterol Calculated 110 mg/dl; Potassium 3.9 mmol/L (3.3-5.1); Sodium 139 mmol/L (135-145); Total Protein 6.7 g/dL (6.5-8.0); Triglycerides 48 mg/dL
[2023-03-09 14:29] LABS: Mean Platelet Volume 13.1 fL (9.4-12.3); Platelet Count 116 X10*3/uL (160-400)
[2023-03-09 14:30] LABS: SLIDE REVIEW VERIFIED
[2023-03-09 14:43] LABS: Ferritin 32 ng/mL (10-250)
[2023-03-09 14:45] LABS: TSH reflex Free T4 0.84 uIU/mL (0.32-4.0); Vitamin D 25-OH Total 43.5 ng/mL (>30)
== END 2023-03-09 12:07 | disposition home or self-care (01) ==
LOC: HO.LAB 12:06
PROVIDERS: Internal Medicine Medical Oncology; Absent Provider Internal Medicine; PCP Internal Medicine; Visit Provider Hospitalist
DX: Z00.01 Encounter for general adult medical examination with abnormal findings (principal); D64.9 Anemia, unspecified; Z83.49 Family history of other endocrine, nutritional and metabolic diseases; Z20.822 Contact with and (suspected) exposure to COVID-19
CPT/HCPCS: 36415; 80053; 80061; 82306; 82728; 84443; 85025; 87635

== ENCOUNTER 2023-04-03 13:46 | Outpatient (AMB) | payer OTHER, SELFPAY ==
--- NOTE | 2023-04-03 13:56 | MHC.OFFVIS ---
Intake Vital Signs 04/03/23 14:00 Height 5 ft Weight 123 lb BMI 24.0 BP 105/55 L Blood Pressure Location Lt brachial Position Sitting Pulse 68 Intake Visit Reasons: Colonoscopy screening Intake Note: Patient new consult for 1st pre colonoscopy. Patient cc: Nauseas on and off, acid reflex On and off, ad denies any other GI issues. 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 Accompanied by: Self / Same As Patient Allergies No Known Allergies Allergy (Verified 01/30/23 08:39) Medication List - Last Reconciled 04/03/23 by Lis Durbin PA-C blood-glucose meter ([employer] Verio Flex Meter) As directed blood-glucose transmitter (Dexcom G6 Transmitter device) As directed cholecalciferol (vitamin D3) 25 mcg PO DAILY ferrous fumarate 325 mg PO DAILY insulin lispro 70 units subcut DAILY levonorgestrel (Mirena) 1 device intrauterine lifitegrast 5% (Xiidra) drps ophthalmic (eye) BID multivitamin 1 tab PO DAILY HPI HPI Comments History of Present Illness Details A 47-year-old female referred for index screening colonoscopy She has intermittent acid reflux HX Celiac Disease- genetic testing- Dr. Mccrary She had anemia- 2020- DUB- follows with [facility]- has Mirena- Bowels typically ok- Appetite is good- BS fairly stable PFSH Medical History Celiac disease Colon cancer screening Diabetes mellitus, insulin dependent (IDDM), controlled DUB (dysfunctional uterine bleeding) Eczema of both hands Family history of thyroid disease Iron deficiency anemia Shoulder pain, right Surgical History No significant past surgical history Family History Father Hx of hyperlipidemia History of hypertension Hx of diabetes mellitus Mother Hx of hyperlipidemia History of hypertension Hx of diabetes mellitus Sister Hypothyroid Arthritis Social History Household Members: Spouse and Children Housing: House Alcohol intake: never Patient Tobacco Use Status: Never used Tobacco e-Cigarette/Vaping Use: Never Used Current occupational status: employed Current occupation: nutricionist Sexual orientation: Straight/Heterosexual Gender identity: Female Cognitive needs: No Hearing needs: No Vision needs: Yes Female Reproductive History Menstrual Age of Menarche: 14 Physical Exam Vital Signs: Last Vital Signs Pulse 68 04/03/23 14:00 BP 105/55 L 04/03/23 14:00 BMI result Body Mass Index 24.0 Const General: cooperative, healthy appearing, comfortable, no acute distress and well groomed Orientation/consciousness: patient oriented x3 Limitations: no limitations Eyes Sclerae: sclerae normal Resp Effort & Inspection: normal respiratory effort and able to speak in complete sentences Auscultation: clear to auscultation bilaterally and no wheezes Cardio Rate: regular rate Rhythm: regular rhythm Heart sounds: S1 normal heart sound present and S2 normal heart sound present GI Palpation (GI): Soft to palpation and nontender Auscultation: normal bowel sounds Skin General skin exam: no rashes or lesions noted Neuro General: patient oriented x3 Extrem General: Yes full ROM Psych Appearance: grossly normal and well kempt Mental Status: mental status grossly normal Speech and movement: Normal speech and movement present and Clear speech present Affect: normal affect Attitude: cooperative Thought process: Normal thought process present Thought content: Normal thought content present Insight: Good insight present (Psych) Judgement: Good judgement present (Psych) Results Reviewed Results Reviewed: Neutropenia follow back to 2019 Thrombocytopenia Reviewed note Assessment & Plan Assessment & Plan (1) Encounter for screening colonoscopy: Comment: Very pleasant, good historian, 47-year-old female DM, insulin pump, history anemia- DUB Review labs show neutropenia as well as thrombocytopenia follows with Dr. Mccrary Schedule index screening colonoscopy as well as EGD-to complete workup She is agreeable with the plan Code(s): Z12.11 - Encounter for screening for malignant neoplasm of colon Plan: EGD/colonoscopy (2) Celiac disease: Comment: She had positive Genetic testing for celiac Never had tissue biopsy Code(s): K90.0 - Celiac disease (3) Diabetes mellitus, insulin dependent (IDDM), controlled: Comment: Insulin pump-expertise Plan: Half dose insulin evening before no diabetes medication morning of procedure-adjust pump according Plan EGD colonoscopy with Dr. Clark or Dr. Grant hooper- MiraLax Gatorade prep Orders: Orders EGD/[place] Combo - GI Use Only 04/03/23 Medications: New bisacodyl (Dulcolax (bisacodyl)) Take 4 tablets by mouth at 12:00pm the day before your procedure. 20 mg (4 x 5 mg) PO ONCE 1 day 4 tabs 0RF colonoscopy prep Z12.11 - Encounter for screening for malignant neoplasm of colon polyethylene glycol 3350 (Miralax) Take as directed by mouth the day before your procedure. 238 grams PO ONCE 1 day PRN 238 grams 0RF laxative effect Patient Instructions: Very pleasant 47-year-old female referred for index screening colonoscopy, history of celiac disease, diabetes, anemia, DUB Discussed procedures, rare risk,need for escort-MiraLax Gatorade prep She will follow back with Hematology as need Encouraged to call questions or concern Appreciate the opportunity assist in the care this very pleasant patient Coding Level of Care Code New Pt Level 3 (38380) Diagnoses Encounter for screening colonoscopy Z12.11 Celiac disease K90.0 Diabetes mellitus, insulin dependent (IDDM), controlled Time Spent (min) 30
[2023-04-03 14:00] VITALS: BP 105/55; PULSE 68; BMI 24.0
== END 2023-04-03 14:40 | disposition home or self-care (01) ==
PROVIDERS: PCP Internal Medicine; Visit Provider Physician Assistant
DX: Z01.818 Encounter for other preprocedural examination (principal); Z12.11 Encounter for screening for malignant neoplasm of colon; K90.0 Celiac disease
CPT/HCPCS: S0285

== ENCOUNTER → 2023-04-03 13:46 | Outpatient (BNVA) | payer OTHER, SELFPAY | PROVIDERS: PCP Internal Medicine; Visit Provider Physician Assistant ==

== ENCOUNTER 2023-05-24 08:23 | Outpatient (AMB) | payer OTHER, SELFPAY ==
--- NOTE | 2023-05-24 08:33 | A.OFFVIS_ITS ---
Intake Vital Signs 05/24/23 08:36 Height 5 ft Weight 124 lb BMI 24.2 BP 122/80 Intake Visit Reasons: Annual Occupational Health Physiotherapist Required: No Information Interpreted: non-clinical & clinical Emergency Dispatcher: Emergency Dispatcher Present (Leta) Allergies No Known Allergies Allergy (Verified 05/24/23 08:38) Is last menstrual period known: Yes Last menstrual period: 05/21/23 Post menopausal: No HPI HPI Comments History of Present Illness Details Presenting for annual exam. Complaining of irregular menstrual cycle on Mirena IUD. Last EMB was in 03/17 was negative for endometrial hyperplasia and/or malignancy Last Pap/HPV was negative in 05/18 Last Mammogram was BI-RADS 1 in 07/18 No previous screening colonoscopy, scheduled soon [facility] Medical History Celiac disease Colon cancer screening Family history of thyroid disease DUB (dysfunctional uterine bleeding) Shoulder pain, right Iron deficiency anemia Eczema of both hands Diabetes mellitus, insulin dependent (IDDM), controlled Surgical History No significant past surgical history Family History Father Hx of hyperlipidemia History of hypertension Hx of diabetes mellitus Mother Hx of hyperlipidemia History of hypertension Hx of diabetes mellitus Sister Hypothyroid Arthritis Social History Household Members: Spouse and Children Housing: House Alcohol intake: never Patient Tobacco Use Status: Never used Tobacco e-Cigarette/Vaping Use: Never Used Current occupational status: employed Current occupation: nutricionist Sexual orientation: Straight/Heterosexual Gender identity: Female Cognitive needs: No Hearing needs: No Vision needs: Yes Female Reproductive History Menstrual Age of Menarche: 14 Duration of menses: 6-7 days Date of last menstrual period: 05/21/23 control method: progestin IUCD Total pregnancies: 2 Full term: 2 Number of Living Children: 2 Date of last pap smear: 05/19/21 (negative) Review of Systems Const All systems reviewed & are unremarkable except as noted in HPI and below Card Reports as per HPI Resp Reports as per HPI GI Reports as per HPI and Reports no additional complaints Reports as per HPI Physical Exam Vital Signs: Last Vital Signs BP 122/80 05/24/23 08:36 BMI result Body Mass Index 24.2 Const General: cooperative, healthy appearing and comfortable Chest Chest palpation & inspection: normal inspection of the chest and normal palpation of entire chest wall Breast/axilla inspection: normal inspection of the breasts and normal inspection of the axillae Breast/axilla palpation: normal palpation of the breasts, normal palpation of the axillae and no axillary lymphadenopathy Resp Effort & Inspection: normal respiratory effort Auscultation: clear to auscultation bilaterally Percussion: percussion normal Cardio Palpation: normal PMI Rate: regular rate Rhythm: regular rhythm Heart sounds: no murmurs and no rubs Peripheral pulses: Peripheral pulses 2+ throughout GI Inspection: Yes normal to inspection Palpation (GI): Soft to palpation, nontender, no guarding, not rigid and No hepatosplenomegaly present Percussion: Yes normal to percussion Auscultation: normal bowel sounds Rectal Exam - Female: deferred General: Yes bladder normal to palpation External Female Exam: No lesion Speculum Exam - Vagina: normal appearance of the vagina, normal palpation, n ormal vaginal discharge and not erythematous Speculum Exam - Cervix: normal appearance of the cervix, normal palpation and Other cervical findings present (IUD string in place) Bimanual exam- vagina & uterus: normal bimanual exam, normal palpation, uterine size normal, bladder normal to palpation, consistency normal and normal palpation Bimanual Exam- Adnexa, other: normal adnexae, no masses and no tenderness Office Procedures Endometrial Biopsy Details: The patient was counseled regarding the indication and benefits of endometrial sampling to rule out endometrial pathology including not limited to endometrial hyperplasia or endometrial cancer and others; The alternatives (Either do nothing vs. hysteroscopy D&C) & the risks were discussed with the patient including but not limited: pain, uterine perforation, bleeding, infection, possible injury to bladder, bowel, ureter, possible need for blood transfusion with all its possible risks. The patient verbalized understanding all questions answered and signed consent. Urine test done in the office was negative The patient was placed into the dorsal lithotomy position; a speculum was inserted in the vagina. Using aseptic technique for the procedure, the cervix was cleansed with Betadine. The anterior lip of the cervix was grasped with a single tooth tenaculum. The uterus was sounded to 7 cm with a 4 mm Pipelle was used. Tissues samples were obtained and placed in formalin, in a patient labeled container and sent to the pathology department. At the end of the procedure, there was minimal bleeding noted The patient tolerated the procedure well and was discharged in good condition with the following instructions: Nothing in the vagina until the bleeding stops. No sex until the bleeding stops, to call if any of the following occurs: fever (>100.4), flu-like symptoms, abdominal pain, heavy bleeding, four smelling vaginal discharge. The patient was instructed to schedule a Follow up appointment in 2 weeks to discuss pathology results of the biopsy and treatment options. This note was generated with a voice recognition program. Some errors may have been overlooked during the review of this note. Sometimes these errors may affect the content or meaning of a given sentence. [id number] Biopsy Assessment & Plan Assessment & Plan (1) Well woman exam: Code(s): Z01.419 - Encounter for gynecological examination (general) (routine) without abnormal findings Plan: Cotesting not indicated this year. Mammogram ordered. Counseled the patient about the recommended dietary allowance of 1000 mg of Calcium & 600 IU of vitamin D. The patient was instructed to perform monthly self-breast exams and to schedule an annual exam in a year; The patient is scheduled for screening colonoscopy soon All questions answered and the patient verbalized understanding. Instructed the patient to schedule annual exam in a year (2) DUB (dysfunctional uterine bleeding): Comment: on Mirena IUD Code(s): N93.8 - Other specified abnormal uterine and vaginal bleeding Plan: Co testing not indicated this, CBC, TSH done recently in 03/19, urine test done in the office was negative, and pelvic ultrasound ordered. Discussed with the patient the different causes of abnormal bleeding including thyroid disorders, uterine and ovarian pathology, endometrial hyperplasia, carcinoma and other potential causes. Discussed with the patient the work up including CBC ,TSH which were done recently and within normal except for platelets 116 K, pelvic Ultrasound, endometrial biopsy to r/o endometrial pathology. EMB done, see procedure note . Instructed the patient to schedule a follow-up appointment in 2 weeks. All questions answered and the patient verbalized understanding. (3) Thrombocytopenia: Code(s): D69.6 - Thrombocytopenia, unspecified Plan: Discussed with the patient different causes of thrombocytopenia, the patient will call for follow-up appointment with Hematology for further management Orders: Orders AMB Endometrial Biopsy Today N93.8 - Other specified abnormal uterine and vaginal bleeding MM screening mammo BI Today Z12.31 - Encounter for screening mammogram for malignant neoplasm of breast US pelvic and transvaginal Today N93.9 - Abnormal uterine and vaginal bleeding, unspecified Coding Level of Care Code Est Pt Level 3 (99228) Procedure Only Diagnoses Well woman exam Z01.419 DUB (dysfunctional uterine bleeding) N93.8 Thrombocytopenia D69.6 CPT Codes Endometrial Biopsy - CPT: 24157-[id number] Biopsy ([id number])
[2023-05-24 08:36] VITALS: BP 122/80; BMI 24.2
== END 2023-05-24 09:21 | disposition home or self-care (01) ==
PROVIDERS: Visit Provider Obstetrics & Gynecology
DX: N93.8 Other specified abnormal uterine and vaginal bleeding (principal); D69.6 Thrombocytopenia, unspecified; Z32.02 Encounter for pregnancy test, result negative; Z01.419 Encounter for gynecological examination (general) (routine) without abnormal findings
CPT/HCPCS: 58100; 99213

== ENCOUNTER 2023-05-24 08:23 | Outpatient (REF) | payer OTHER, SELFPAY | END 2023-05-24 08:24 | disposition home or self-care (01) | LOC: HO.LNP 08:23 | PROVIDERS: Visit Provider Obstetrics & Gynecology | DX: N93.8 Other specified abnormal uterine and vaginal bleeding (principal); D69.6 Thrombocytopenia, unspecified | CPT/HCPCS: 58100; 81025; 88305 ==

== ENCOUNTER 2023-06-06 11:05 | Outpatient (REF) | payer OTHER, SELFPAY | END 2023-06-06 11:06 | disposition home or self-care (01) | LOC: HO.10HDL 11:05 | PROVIDERS: Visit Provider Internal Medicine | DX: E10.649 Type 1 diabetes mellitus with hypoglycemia without coma (principal) | CPT/HCPCS: 36415; 83036 ==

== ENCOUNTER 2023-06-14 09:30 | Outpatient (REF) | payer OTHER, SELFPAY ==
--- NOTE | ~2023-06-14 | XR_ITS ---
EXAMINATION: XR CHEST CLINICAL INFORMATION: Cough COMPARISON: None available. TECHNIQUE: 2 views of the chest were obtained. FINDINGS: The lungs are well-inflated. The heart size is normal. There is no gross pneumothorax. Mild S-shaped thoracolumbar scoliosis with mild degenerative changes. No pleural effusion. 4 mm nodular density projects over the anterior aspect of the right second rib in the right upper lobe, possibly a pulmonary nodule. XR/XR chest 2V IMPRESSION: Possible 4 mm right upper lobe pulmonary nodule. CT scan of the chest recommended for further evaluation. This study was presented today 06/20/2023 at 8:40 AM for interpretation. PSA staff will provide results to referring provider at this time.
== END 2023-06-14 09:31 | disposition home or self-care (01) ==
LOC: HO.XRAY 09:30
PROVIDERS: PCP Internal Medicine; Visit Provider Hospitalist
DX: R05.9 Cough, unspecified (principal)
CPT/HCPCS: 71046

== ENCOUNTER 2023-07-03 15:12 | Outpatient (REF) | payer OTHER, SELFPAY ==
--- NOTE | ~2023-07-03 | MM_ITS ---
EXAMINATION: MM SCREENING DIGITAL BREAST TOMOSYNTHESIS, BILATERAL CLINICAL INFORMATION: Screening. Asymptomatic. COMPARISON: Mammography: This study is compared with prior exams dating back to 2020. TECHNIQUE: Digital breast tomosynthesis is performed in both the craniocaudal and mediolateral oblique views along with computer-aided detection (CAD). Synthesized 2D images are generated from the tomosynthesis. FINDINGS: The breasts are extremely dense, which lowers the sensitivity of mammography (ACR BI-RADS breast composition Category d). There are no significant masses, abnormal calcifications, or other abnormalities. MM/MM tomosynthesis screening BI IMPRESSION: No mammographic evidence of malignancy. ASSESSMENT: BI-RADS BI-RADS 1 - Negative RECOMMENDATION: Routine annual mammography screening. 1 year F/U This examination should not preclude the clinical evaluation of a suspicious palpable abnormality. This patient's information was entered into a reminder system with a target due date for their next mammogram.
== END 2023-07-03 15:13 | disposition home or self-care (01) ==
LOC: HO.MAMMO 15:12
PROVIDERS: PCP Internal Medicine; Visit Provider Obstetrics & Gynecology
DX: Z12.31 Encounter for screening mammogram for malignant neoplasm of breast (principal)
CPT/HCPCS: 77063; 77067

== ENCOUNTER → 2023-07-03 15:30 | Outpatient (BNV) | payer OTHER, SELFPAY | PROVIDERS: PCP Internal Medicine; Visit Provider Radiology Diagnostic Radiology | DX: Z12.31 Encounter for screening mammogram for malignant neoplasm of breast (principal) | CPT/HCPCS: 77063; 77067 ==

== ENCOUNTER 2023-07-27 07:21 | Outpatient (REF) | payer OTHER, SELFPAY ==
--- NOTE | ~2023-07-27 | CT_ITS ---
EXAMINATION: CT CHEST WITHOUT CONTRAST CLINICAL INFORMATION: 4 mm nodule on chest x-ray. COMPARISON: Chest x-ray 06/14/2023. TECHNIQUE: Multidetector volumetric CT imaging of the chest was done. Axial MIP volume rendering provided. Sagittal and coronal reformatted images were obtained. This CT examination was performed using dose optimization techniques as appropriate, variously including the following: *Automated exposure control *Adjustment of mA and/or kV according to patient size (this includes techniques or standardized protocols for targeted exams where dose is matched to indication/reason for exam; i.e. extremities or head) *Use of iterative reconstruction technique DLP: 113 mGy-cm FINDINGS: LUNGS: Biapical pleural parenchymal scarring. No nodule or airspace disease seen in the right upper lobe to correspond to the recent chest x-ray finding. There are few scattered micronodules for which no imaging follow-up is recommended. MEDIASTINUM: The azygos and hemiazygos systems are dilated CORONARY ARTERY CALCIFICATION: None visualized on this study. PLEURA: There is no pleural effusion. No pleural mass or thickening. AXILLA: No adenopathy. UPPER ABDOMEN: Question atresia of the suprarenal cava. Detail limited without intravenous contrast. Small cyst in the right hepatic lobe. No follow-up imaging is recommended. OSSEOUS STRUCTURES: Tiny smooth sclerotic density in the anterior right second rib most likely a bone island and may explain the finding on chest x-ray. CT/CT chest wo IV con IMPRESSION: No suspicious abnormality to correspond to the chest x-ray finding. There is a small sclerotic density in the anterior right second rib consistent with a bone island which may explain the chest x-ray finding. There is no suspicious pulmonary nodule in this location. A few scattered pulmonary micronodules. No follow-up imaging is recommended as per Fleischner Society guidelines.. 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 This could be further evaluated with CT venogram of the abdomen and pelvis if clinically indicated. Fleischner guidelines were followed.
== END 2023-07-27 07:22 | disposition home or self-care (01) ==
LOC: HO.CT 07:21
PROVIDERS: PCP Internal Medicine; Visit Provider Internal Medicine
DX: R91.1 Solitary pulmonary nodule (principal)
CPT/HCPCS: 71250

== ENCOUNTER 2023-08-03 15:24 | Outpatient (AMB) | payer OTHER, SELFPAY ==
[2023-08-03 15:29] VITALS: BP 118/80; PULSE 92; O2SAT 98; BMI 24.2
--- NOTE | 2023-08-03 15:29 | MHC.PC.OV ---
Vital Signs 08/03/23 15:29 Height 5 ft Weight 124 lb BMI 24.2 BP 118/80 Blood Pressure Location Lt brachial Position Sitting Pulse 92 Pulse Source Pulse Oximeter Pulse Oximetry (%) 98 Oxygen Delivery Method Room Air Intake Visit Reasons: Followup CXR/pulm nodule Intake Note: Patient is here today to F/u cxr/ plum nodule Allergies No Known Allergies Allergy (Verified 09/25/23 03:55) Medication List - Last Reconciled 09/25/23 by Kathie Rossi MD blood-glucose meter (OneTouch Verio Flex Meter) As directed blood-glucose meter (OneTouch Verio Flex Meter) As directed blood-glucose transmitter (Dexcom G6 Transmitter device) As directed cholecalciferol (vitamin D3) 25 mcg PO DAILY ferrous fumarate 325 mg PO DAILY insulin lispro 70 units subcut DAILY levonorgestrel (Mirena) 1 device intrauterine DAILY lifitegrast 5% (Xiidra) 5 drps ophthalmic (eye) BID multivitamin 1 tab PO DAILY Tobacco use date assessed: 08/03/23 Dental Screening Dental Screen Date: 08/03/23 Did you have a dental visit in the last 12 months?: Yes Did you have a dental problem in the last 6 months where you did not have access to dental care?: No Was dental information given to patient?: Patient has dentist HPI Followup CXR/pulm nodule HPI Details 48-year-old lady here today to discuss results of recent chest x-ray/CT of chest. She had a chest x-ray done May 2023 due to persistent cough which showed possible 4 mm right upper lobe pulmonary nodule. CT scan of the chest was recommended. CT of chest done showed no suspicious abnormality to correspond to the chest x-ray finding.There is a small sclerotic density in the anterior right second rib consistent with a bone island which may explain the chest x-ray finding. There is no suspicious pulmonary nodule in this location. A few scattered pulmonary micronodules, no follow-up imaging recommended as per Fleischner Society guidelines.. The Azygos and hemiazygos veins are dilated with possible atresia of the suprarenal IVC. 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 This could be further evaluated with CT venogram of the abdomen and pelvis if clinically indicated. 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 Celiac disease Colon cancer screening Family history of thyroid disease DUB (dysfunctional uterine bleeding) Shoulder pain, right Iron deficiency anemia Eczema of both hands Diabetes mellitus, insulin dependent (IDDM), controlled Surgical History No significant past surgical history Family History Father Hx of hyperlipidemia History of hypertension Hx of diabetes mellitus Mother Hx of hyperlipidemia History of hypertension Hx of diabetes mellitus Sister Hypothyroid Arthritis Social History Household Members: Spouse and Children Housing: House Alcohol intake: never Patient Tobacco Use Status: Never used Tobacco e-Cigarette/Vaping Use: Never Used Current occupational status: employed Current occupation: nutricionist Sexual orientation: Straight/Heterosexual Gender identity: Female Cognitive needs: No Hearing needs: No Vision needs: Yes Female Reproductive History Menstrual Age of Menarche: 14 Questionnaire Thrive Questionnaire Date Thrive assessed: 01/30/23 KERVIN-7 AMB Questionnaire KERVIN-7 Date KERVIN - 7 assessed: 01/30/23 Source: Developed by Drs. Vinayak Carvalho, Daniella Mendoza, Hank Mcmanus and colleagues, with an educational kristin from [employer]. Review of Systems Const Denies body aches, Denies headache(s) and Denies weakness Eyes Reports dry eyes (on Xiidra eyedrops, sees Dr. Ortega) ENT Denies dizziness, Denies headache(s) and Denies nasal congestion Card Denies chest pain, Denies syncope, Denies leg edema, Denies palpitations and Denies dyspnea Resp Denies chest congestion, Denies cough and Denies dyspnea GI Denies abdominal pain, Denies melena, Denies bloating, Denies hematochezia, Denies change in bowel habits and Denies heartburn Denies hematuria, Denies urinary frequency, Denies dysuria and Denies urinary urgency Musc Denies arthralgias, Denies numbness and Denies stiffness Neuro Denies dizziness, Denies syncope, Denies headache(s), Denies numbness, Denies Sensory deficit (Neuro) and Denies weakness Endo Details: Currently sees Denies polydipsia, Denies polyuria and Denies palpitations Aditya/Lymph Denies easy bruising Physical exam (Primary Care) Vital Signs: Last Vital Signs Pulse 92 08/03/23 15:29 BP 118/80 08/03/23 15:29 Pulse Ox 98 08/03/23 15:29 Oxygen Delivery Method Room Air 08/03/23 15:29 BMI result Body Mass Index 24.2 Tobacco/Smoking Status: Tobacco use Status Tobacco use date assessed 08/03/23 08/03/23 15:31 Patient Tobacco Use Status Never used Tobacco 08/03/23 15:31 e-Cigarette/Vaping Use Never Used 08/03/23 15:31 Thrive Assessment: Date of Thrive Assessment Date Thrive assessed 01/30/23 08/03/23 15:31 Const General: comfortable and no acute distress Nutritional Appearance: average body habitus HENMT Face and sinus: Yes face symmetric Mouth: Normal oral and palatal mucosa present and moist mucous membranes Eyes General: appearance normal, both eyes and all related structures Conjunctivae: conjunctivae normal Sclerae: sclerae normal EOM: EOMs intact bilaterally Neck Neck: Yes full ROM, Yes no lymphadenopathy and Yes supple Thyroid: Thyroid normal Resp Effort & Inspection: normal respiratory effort and able to speak in complete sentences Auscultation: clear to auscultation bilaterally Cardio Palpation: normal PMI Rate: regular rate Rhythm: regular rhythm Heart sounds: S1 normal heart sound present and S2 normal heart sound present GI Inspection: Yes normal to inspection Palpation (GI): Soft to palpation, nontender, no guarding and no masses Auscultation: normal bowel sounds General: Yes no CVA tenderness Back/Spine/Pelvis Back: no CVA tenderness and No back tenderness Neuro Sensory Exam: No Sensory deficit (Neuro) Extrem General: Yes full ROM, Yes no joint enlargement and Yes no clubbing, cyanosis or edema Assessment and Plan Assessment & Plan (1) Bony sclerosis: Comment: 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
== END 2023-08-03 16:54 | disposition home or self-care (01) ==
PROVIDERS: PCP Internal Medicine; Visit Provider Internal Medicine
DX: Q78.2 Osteopetrosis (principal); Q26.8 Other congenital malformations of great veins
CPT/HCPCS: 99213

== ENCOUNTER 2024-01-04 15:16 | Outpatient (REF) | payer OTHER, SELFPAY ==
[2024-01-04 18:23] LABS: SCAN SMEAR FLAG 1
[2024-01-04 18:25] LABS: Basophils Percent Auto 0.4 % (0-2); PLT CLUMP 1
[2024-01-04 18:33] LABS: Eosinophils Absolute Auto 0.1 X10*3/uL (0.0-0.4); Imm Gran Abs Auto 0.01 X10*3/uL (0.00-0.03); Imm Gran Pct Auto 0.2 % (0.0-0.4)
[2024-01-04 18:35] LABS: Eosinophils Percent Auto 1.8 % (0-4); Hematocrit 40.5 % (37.0-47.0); Hemoglobin 13.6 g/dl (12.0-16.0); Lymphocytes Absolute Auto 1.2 X10*3/uL (1.2-4.9); Lymphocytes Percent Auto 23.9 % (20-40); Mean Corpuscular HGB Conc 33.6 g/dl (31.0-35.0); Mean Corpuscular Hemoglobin 31.1 pg (27.0-33.0); Mean Corpuscular Volume 92.7 fL (80.0-98.0); Mean Platelet Volume 13.2 fL (9.4-12.3); Monocytes Absolute Auto 0.4 X10*3/uL (0.1-1.2); Monocytes Percent Auto 8.6 % (2-11); Neutrophils Absolute Auto 3.3 x10*3/uL (2.0-8.3); Neutrophils Percent Auto 65.1 % (45-73); Red Blood Count 4.37 X10*6/uL (4.20-5.50); Red Cell Distribution Width 12.3 % (11.0-16.0)
[2024-01-04 18:44] LABS: MANUAL DIFF FLAG NO; PLT ABN DIST 1; Platelet Count 138 X10*3/uL (160-400); White Blood Count 5.1 X10*3/uL (4.8-10.8)
[2024-01-04 18:53] LABS: Creatinine Urine 212.51 mg/dL; Microalbum/Creatinine Ratio Ur 10.8 ug/mg cr (<30)
[2024-01-04 18:54] LABS: Cholesterol 192 mg/dL (<200); HDL Cholesterol 60 mg/dL (>40); Iron 93 mcg/dL (30-160); LDL Cholesterol Calculated 114 mg/dL (<100); Percent Iron Saturation 42 % (15-50); Total Iron Binding Capacity 222 mcg/dL (228-428); Triglycerides 94 mg/dL (<150); Unsaturated Iron Binding 129 ug/dL
[2024-01-05 05:14] LABS: Estimated Average Glucose 157 mg/dL; Hemoglobin A1c % 7.1 % (<6.0)
== END 2024-01-04 15:17 | disposition home or self-care (01) ==
LOC: HO.LAB 15:16
PROVIDERS: PCP Internal Medicine; Visit Provider Internal Medicine
DX: Q26.8 Other congenital malformations of great veins (principal); N93.8 Other specified abnormal uterine and vaginal bleeding; Z86.2 Personal history of diseases of the blood and blood-forming organs and certain disorders involving the immune mechanism; Z86.39 Personal history of other endocrine, nutritional and metabolic disease
CPT/HCPCS: 36415; 80061; 82043; 82306; 82570; 83036; 83540; 85025

== ENCOUNTER 2024-02-06 08:01 | Outpatient (AMB) | payer OTHER, SELFPAY ==
[2024-02-06 08:05] VITALS: BP 108/74; PULSE 61; O2SAT 98; BMI 24.2
--- NOTE | 2024-02-06 08:05 | MHC.PC.OV ---
Vital Signs 02/06/24 08:05 Height 5 ft Weight 124 lb BMI 24.2 BP 108/74 Blood Pressure Location Lt brachial Position Sitting Pulse 61 Pulse Source Pulse Oximeter Pulse Oximetry (%) 98 Oxygen Delivery Method Room Air Intake Visit Reasons: PE Intake Note: Pt is here today for PE. Pt states that her last pap was December and she sees Dr. Gonzalez. Allergies No Known Allergies Allergy (Verified 02/06/24 08:38) Medication List - Last Reconciled 02/06/24 by Kathie Rossi MD blood-glucose meter (OneTouch Verio Flex Meter) As directed blood-glucose meter (OneTouch Verio Flex Meter) As directed blood-glucose transmitter (PulmOne G6 Transmitter device) As directed cholecalciferol (vitamin D3) 25 mcg PO DAILY ferrous fumarate 325 mg PO DAILY insulin lispro 70 units subcut DAILY levonorgestrel (Mirena) 1 device intrauterine DAILY lifitegrast 5% (Xiidra) 5 drps ophthalmic (eye) BID multivitamin 1 tab PO DAILY Tobacco use date assessed: 02/06/24 Dental Screening Dental Screen Date: 02/06/24 Did you have a dental visit in the last 12 months?: Yes Did you have a dental problem in the last 6 months where you did not have access to dental care?: No Was dental information given to patient?: Patient has dentist HPI PE HPI Details 48-year-old lady with type 1 diabetes mellitus, history of anemia due to dysfunctional uterine bleeding, hyperlipidemi here today for physical exam. She goes to [facility] for her routine Pap and pelvic exam, currently up-to-date. She is up-to-date with her screening mammogram, but has not yet had her colon cancer screening done. 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 Celiac disease Colon cancer screening Family history of thyroid disease DUB (dysfunctional uterine bleeding) Shoulder pain, right Iron deficiency anemia Eczema of both hands Diabetes mellitus, insulin dependent (IDDM), controlled Surgical History No significant past surgical history Family History Father Hx of hyperlipidemia History of hypertension Hx of diabetes mellitus Mother Hx of hyperlipidemia History of hypertension Hx of diabetes mellitus Sister Hypothyroid Arthritis Social History Household Members: Spouse and Children Housing: House Alcohol intake: never Patient Tobacco Use Status: Never used Tobacco e-Cigarette/Vaping Use: Never Used service: No Current occupational status: employed Current occupation: [employer] Sexual orientation: Straight/Heterosexual Gender identity: Female Cognitive needs: No Hearing needs: No Vision needs: Yes Female Reproductive History Menstrual Age of Menarche: 14 Questionnaire PHQ-9 Over the last 2 weeks, how often have you been bothered by any of the following problems? 1. Little interest or pleasure in doing things: not at all 2. Feeling down, depressed, or hopeless: not at all 3. Trouble falling or staying asleep, or sleeping too much: not at all 4. Feeling tired or having little energy: several days 5. Poor appetite or overeating: not at all 6. Feeling bad about yourself - or that you are a failure or have let yourself or your family down: not at all 7. Trouble concentrating on things, such as reading the newspaper or watching television: not at all 8. Moving or speaking so slowly that other people could have noticed. Or the opposite - being so fidgety or restless that you have been moving around a lot more than usual: not at all 9. Thoughts that you would be better off or of hurting yourself in some way: not at all Total score: 1 Depression Screening Interpretation: Negative Depression Screening Done: Yes 96761 - PHQ-9 Billing: Yes Source: Developed by Drs. Vinayak Carvalho, Daniella Mendoza, Hank Mcmanus and colleagues, with an educational kristin from [employer]. Thrive Questionnaire Date Thrive assessed: 01/30/23 I am a: Patient What is your living situation today?: I have a steady place to live Within the past 12 months, did the food you bought not last and you didn't have the money to get more?: Never true Within the past 12 months, did you worry whether your food would run out before you got money to buy more?: Never true THRIVE Score: 0 AUDIT C Alcohol Use Questionnaire (AUDIT-C) 1. How often do you have a drink containing alcohol?: Monthly or less 2. How many drinks containing alcohol do you have on a typical day when you are drinking?: 1 or 2 3. How often do you have six or more drinks on one occasion?: Never Total Score: 1 KERVIN-7 AMB Questionnaire KERVIN-7 Date KERVIN - 7 assessed: 01/30/23 Feeling nervous, anxious, or on edge: 0 = Not at all Not being able to stop or control worryin = Not at all Worrying too much about different things: 0 = Not at all Trouble relaxin = Not at all Being so restless that it is hard to sit still: 0 = Not at all Becoming easily annoyed or irritable: 0 = Not at all Feeling afraid as if something awful might happen: 0 = Not at all Total KERVIN-7 score (0-4 normal; 5-9 mild; 10-14 moderate; 15-21 severe): 0 Source: Developed by Drs. Vinayak Carvalho, Daniella Mendoza, Hank Mcmanus and colleagues, with an educational kristin from [employer]. KERVIN-7 Assessment Billing KERVIN-7 Assessment Tool: KERVIN-7 Assessment 10841 Review of Systems Const Denies body aches, Denies headache(s) and Denies weakness Eyes Reports dry eyes (on Xiidra eyedrops, sees Dr. Ortega) ENT Denies dizziness, Denies headache(s) and Denies nasal congestion Card Denies chest pain, Denies syncope, Denies leg edema, Denies palpitations and Denies dyspnea Resp Denies chest congestion, Denies cough and Denies dyspnea GI Denies abdominal pain, Denies melena, Denies bloating, Denies hematochezia, Denies change in bowel habits and Denies heartburn Denies hematuria, Denies urinary frequency, Denies dysuria and Denies urinary urgency Musc Denies arthralgias, Denies numbness and Denies stiffness Skin/Breast Denies breast pain, Denies breast mass and Denies rash Neuro Denies dizziness, Denies syncope, Denies headache(s), Denies numbness, Denies Sensory deficit (Neuro) and Denies weakness Psych Reports no additional complaints Endo Details: Currently sees Denies polydipsia, Denies polyuria and Denies palpitations Aditya/Lymph Denies easy bruising Aller/Immun Reports no additional complaints Physical exam (Primary Care) Vital Signs: Last Vital Signs Pulse 61 02/06/24 08:05 BP 108/74 02/06/24 08:05 Pulse Ox 98 02/06/24 08:05 Oxygen Delivery Method Room Air 02/06/24 08:05 BMI result Body Mass Index 24.2 Tobacco/Smoking Status: Tobacco use Status Tobacco use date assessed 02/06/24 02/06/24 08:09 Patient Tobacco Use Status Never used Tobacco 02/06/24 08:09 e-Cigarette/Vaping Use Never Used 02/06/24 08:09 Depression Screening Interpretation: Negative Thrive Assessment: Date of Thrive Assessment Date Thrive assessed 01/30/23 02/06/24 08:09 Const General: comfortable and no acute distress Nutritional Appearance: average body habitus HENMT Face and sinus: Yes face symmetric Mouth: Normal oral and palatal mucosa present and moist mucous membranes Eyes General: appearance normal, both eyes and all related structures Conjunctivae: conjunctivae normal Sclerae: sclerae normal EOM: EOMs intact bilaterally Neck Neck: Yes full ROM, Yes no lymphadenopathy and Yes supple Thyroid: Thyroid normal Chest Breast/axilla palpation: normal palpation of the breasts Resp Effort & Inspection: normal respiratory effort and able to speak in complete sentences Auscultation: clear to auscultation bilaterally Cardio Palpation: normal PMI Rate: regular rate Rhythm: regular rhythm Heart sounds: S1 normal heart sound present and S2 normal heart sound present GI Inspection: Yes normal to inspection Palpation (GI): Soft to palpation, nontender, no guarding and no masses Auscultation: normal bowel sounds General: Yes no CVA tenderness Back/Spine/Pelvis Back: no CVA tenderness and No back tenderness Skin General skin exam: no rashes or lesions noted Neuro Sensory Exam: No Sensory deficit (Neuro) Extrem General: Yes full ROM, Yes no joint enlargement and Yes no clubbing, cyanosis or edema Psych Appearance: grossly normal and well kempt Mental Status: mental status grossly normal Speech and movement: Normal speech and movement present Affect: normal affect Thought process: Normal thought process present Results Reviewed Results Reviewed: Name: Faustina Pizarro Age/Sex: 48/F : 1975 Unit#: [id number] Attend Dr: Kathie Rossi MD Re01/04/24 Status: DEP REF Location: [facility] Disch: SPEC : [id number] RENETTA: 01/04/24 STATUS: COMP REQ : [id number] RECD: 01/04/24-[address]: Kathie Rossi MD COMP: 01/04/24-1844 ENTERED: 01/04/24-[address]: ORDERED: CBC Auto Diff COMMENTS: CC Dr. Marcela Bryant MD - [place], [place] - Endocrinology Test Result Flag Reference WBC 5.1 4.8-10.8 X10*3/uL RBC 4.37 4.20-5.50 X10*6/uL HGB 13.6 12.0-16.0 g/dl HCT 40.5 37.0-47.0 % MCV 92.7 80.0-98.0 fL MCH 31.1 27.0-33.0 pg MCHC 33.6 31.0-35.0 g/dl RDW 12.3 11.0-16.0 % PLT 138 L 160-400 X10*3/uL MPV 13.2 H 9.4-12.3 fL Neut Pct Auto 65.1 45-73 % ImGran Pct Auto 0.2 0.0-0.4 % Lymp Pct Auto 23.9 20-40 % Huron Pct Auto 8.6 2-11 % Eos Pct Auto 1.8 0-4 % Baso Pct Auto 0.4 0-2 % NRBC Pct Auto 0.0 0.0-0.2 /100WBC ANC Neut Abs # 3.3 2.0-8.3 x10*3/uL ImGran Abs Auto 0.01 0.00-0.03 X10*3/uL Lymph Abs Auto 1.2 1.2-4.9 X10*3/uL Huron Abs Auto 0.4 0.1-1.2 X10*3/uL Eos Abs Auto 0.1 0.0-0.4 X10*3/uL Baso Abs Auto 0.0 0.0-0.2 X10*3/uL NRBC Abs Auto 0.000 0.0-0.012 X10*3/uL Laboratory Tests 01/04/24 15:30 Estimat Average Glucose 157 Hemoglobin A1c % 7.1 H Iron 93 TIBC 222 L % Saturation 42 Unsat Iron Binding 129 Triglycerides 94 Cholesterol 192 LDL Cholesterol, Calc 114 H HDL Cholesterol 60 25-OH Vitamin D Total 45.0 Coding Level of Care Code Est Pt Prev Care 40-64y(32887) Diagnoses Annual visit for general adult medical examination with abnormal findings Z00.01 Diabetes mellitus, insulin dependent (IDDM), controlled Hyperlipidemia with target low density lipoprotein (LDL) cholesterol less than 100 mg/dL E78.5 History of anemia Z86.2 Additional Codes KERVIN-7 Assessment Billing - KERVIN-7 Assessment Tool: KERVIN-7 Assessment 97621 ([id number])
== END 2024-02-06 11:21 | disposition home or self-care (01) ==
PROVIDERS: PCP Internal Medicine; Visit Provider Internal Medicine
DX: Z00.00 Encounter for general adult medical examination without abnormal findings (principal); E78.5 Hyperlipidemia, unspecified; Z86.2 Personal history of diseases of the blood and blood-forming organs and certain disorders involving the immune mechanism
CPT/HCPCS: 99396

== ENCOUNTER 2024-07-22 10:13 | Outpatient (REF) | payer OTHER, SELFPAY ==
[2024-07-22 12:05] LABS: Estimated Average Glucose 151 mg/dL; Hemoglobin A1C 176.1685 umol/L; Hemoglobin A1c % 6.9 % (<6.0); Total Hemoglobin (HGBA1C) 3412.1909 umol/L
[2024-07-22 12:17] LABS: Alanine Aminotransferase 20 U/L (0-31); Albumin Level 4.3 g/dL (3.5-5.0); Alkaline Phosphatase 73 U/L (39-117); Anion Gap 7 (12-20); Aspartate Amino Transferase 22 U/L (5-31); Bilirubin Total 0.5 mg/dL (0.0-1.0); Blood Urea Nitrogen 15 mg/dL (9-16); Calcium 9.8 mg/dL (8.4-10.2); Carbon Dioxide 29 mmol/L (22-29); Chloride 108 mmol/L (96-108); Estimated Glomerular Filt Rate > 60; Glucose Random 97 mg/dL (60-115); Sodium 140 mmol/L (135-145); Total Protein 7.3 g/dL (6.5-8.0)
[2024-07-22 12:31] LABS: TSH reflex Free T4 0.72 uIU/mL (0.32-4.0)
== END 2024-07-22 10:14 | disposition home or self-care (01) ==
LOC: HO.LAB 10:13
PROVIDERS: PCP Internal Medicine; Referring Provider Internal Medicine; Visit Provider Internal Medicine
DX: E10.649 Type 1 diabetes mellitus with hypoglycemia without coma (principal)
CPT/HCPCS: 36415; 80053; 83036; 84443

== ENCOUNTER 2025-05-26 09:41 | Outpatient (REF) | payer OTHER, SELFPAY ==
--- OUTSIDE RECORDS SUMMARY | 2025-05-26 10:36 | XMS_ITS | Clinical Summary ---
Author Organization [facility] Address [address] [place] [phone] Phone Care Team Providers Care Tower Erector Helper Name Role Phone Kathie Rossi MD Primary Care Provider Allergies Active Allergy Reactions Criticality Noted Date Comments Gluten Protein GI Upset 12/06/2022 Unable to absorbed Milk Containing Products (Dairy) Diarrhea,GI Upset 12/06/2022 Medications XIIDRA 5 % opthalmic solution 1 drop 2 (two) times a day. 10/20/19 23 Active blood-glucose Misc meterIndications :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 USE TO TEST BLOOD SUGAR FOUR TIMES DAILY 1 each 09/29/19 24 Active HUMALOG U-100 INSULIN 100 unit/mL injection vial Use 70 Units every 24 hours via insulin pump 70 mL 3 07/22/20 24 Active DEXCOM G7 SENSOR DeviIndications: 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 1 each by Miscellaneous route Every 10 Days. 9 each 3 07/22/20 24 Active Active Problems Problem Noted Date Diagnosed Date Type 1 diabetes mellitus with hypoglycemia unawa reness 12/06/2022 Overview (12/06/2022): Using tandem T slim X to with Dexcom G6. Pump supplier is [employer]. Dexcom supplies from her pharmacy Assessment & Plan (08/03/2024 7:35 PM EST): Type 1 diabetes since age 14 with history of hypoglycemia unawareness. No other complications. Good control by Dexcom CGM download. Slight spikes after breakfast and after lunch which may be related to entering less than actual carbohydrates because her worry about postprandial lows especially at work. No frequent or severe hypoglycemia. Improved hypoglycemia awareness. -Continue current pump settings -Enter actual carbs consumed and bolus for them with current insulin to carb ratio. Adjust insulin to carb ratio pending on 2 to 3-hour postprandial blood sugars -Labs soon. Will review through [place]. -Follow-up in 6 months Assessment & Plan (01/08/2024 9:30 AM EDT): Good control by tandem t:slim X to Dexcom G7 download. Last A1c slightly higher at 7.3% recently. She was vacationing in the [place] few weeks ago and had some higher numbers when was switching around her basal rates. It took 2 to 3 weeks to get back to target blood sugars. No frequent or severe hypoglycemia. She usually enters less carbs than what she eats especially at lunchtime because of worry about going lows during work. Does not use sleep mode. Suggested to enter actual carbs consumed and bolus by current insulin to carb ratio of 1:7 at lunch. If having hypoglycemia within 2 to 3 hours, increase insulin to carb ratio to 1:8 or 1:9. Try to consistently bolus with snacks. Set sleep mode to further improve overnight blood sugars. Call with blood sugar problems. Lipids are close to target. Up-to-date with eye exam, report reviewed, no diabetic retinopathy. Urine microalbumin to creatinine ratio is normal in 12/2023. To have labs repeated in 6 months. Assessment & Plan (06/23/2023 10:40 PM EDT): Control is good by Dexcom download. Last A1c 6.4% yesterday. No frequent or severe hypoglycemia. Blood sugars are running slightly over target between 4 AM and 6 AM and mid afternoon. Patient is usually entering less carbs than what she eats for lunch (enters 45 g and eats 80 g) and uses an insulin to carb ratio of 1:7 to cover her lunch as set in her pump. Suggested to increase her basal rate from 4:30 AM to 6:30 AM to 0.1 from 0.95. Would enter actual amount of carbs and bolus for it with her current insulin to carb ratio of 1:7 ac lunch. If blood sugars over 180 2 to 3 hours after lunch, she may change the insulin to carb ratio to 1:6 between 11 AM to 2 PM. Encouraged to call with problems. To have labs in 6 months and follow-up after labs Assessment & Plan (12/06/2022 9:39 AM EDT): Reasonable control by pump and Dexcom G6 download. Overnight blood sugars mostly at target especially with using the sleep mode. Postprandial spikes mostly after breakfast and lunch. Suggested to increase the lunch bolus by using an insulin to carb ratio of 1:6 from current 1:7. As next step she may also change her insulin to carb ratio at breakfast from 1:5 from 1:6. Great news that she has not had severe hypoglycemia for over 1 year. She is up-to-date with her eye exam, last done in 06/2022, no diabetic retinopathy. Recent labs are not available. Will have fasting blood work and urine microalbumin tested soon. Blood pressure is at target. Encouraged to call with blood sugar problems. Follow-up in 6 months Vitamin D deficiency, unspecified 12/06/2022 Assessment & Plan (08/03/2024 7:36 PM EST): Taking a vitamin every other day. Every so often takes an extra vitamin D supplement. Vitamin D level was normal at 45 in 12/2023. Will continue current treatment. -Importance of 1000 mg calcium daily combined from food and supplement as well as regular weightbearing exercises and fall prevention discussed. Assessment & Plan (01/08/2024 9:02 AM EDT): Taking a vitamin every other day. Every so often takes an extra vitamin D supplement. Vitamin D level was normal at 45 in 12/2023. Will continue current treatment. Assessment & Plan (06/23/2023 10:41 PM EDT): Vitamin D level was normal at 43.5 in 02/2023 while taking 1000 IU D3 every other day. Discussed importance of adequate calcium, vitamin D intake, fall prevention and regular weightbearing exercises Assessment & Plan (12/06/2022 9:40 AM EDT): Taking 1000 IU D3 every other day. Dietary calcium intake is suboptimal about 600 mg. She will work on increasing her dietary calcium intake to 1000 mg daily. Discussed importance of adequate calcium, vitamin D intake, fall prevention. Encounters Date Type Department Care Team Description 05/22/2025 Telephone [facility] [address] [place] [address] Marcela Bryant MD Lab Orders Faxed from Last 3 Months Social History Tobacco Use Types Packs/Day Years Used Date Smoking Tobacco: Never Passive Smoke Exposure: Never Smokeless Tobacco: Never Tobacco Cessation:Counseling Given: No Alcohol Use Standard Drinks/Week Comments Yes 0 (1 standard drink = 0.6 oz pur e alcohol) soical Education Answer Date Recorded Are you interested in more education? Not on evy e 12/24/2022 Are you concerned about learning? Not on file 12/24/2022 No 12/24/2022 No 12/24/2022 Digital Access Answer Date Recorded No 01/22/2023 No 01/22/2023 Reliable internet access at home? Not on file 01/22/2023 Device with a working camera? Not on file Comments Unknown Sex and Gender Information Value Date Recorded Sex Assigned at Not on file Legal Sex Female 2:04 PM EST Gender Identity Not on file Sexual Orientation Not on file Last Filed Vital Signs Vital Sign Reading Time Taken Comments Blood Pressure 110/60 2024 8:29 AM EST Pulse 74 2024 8:29 AM EST Temperature 36.5 C (97.7 F) 01/08/2024 8:10 AM EDT Respiratory Rate - - Oxygen Saturation 98% 01/08/2024 8:10 AM EDT Inhaled Oxygen Concentration - - Weight 56.2 kg (123 lb 12.8 oz) 2024 8:29 AM EST Height 153.7 cm (5' 0.51 ) 2024 8:29 AM ES T Body Mass Index 23.77 2024 8:29 AM EST Plan of Treatment Upcoming Encounters Date Type Department Care Team (Late st Contact Info) Description 05/28/2025 8:20 AM EDT Office Visit [facility] [address] [place] [address] Marcela Bryant MD [address] [place] [phone] [email or web address] Health Maintenance Due Date Last Done Comments Adult Td,Tdap Booster 1975 HEMOGLOBIN A1C 1975 DEPRESSION SCREENING 1988 HEPATITIS C SCREENING 1994 HIV ONE-TIME SCREENING (18-6 5 YEARS) 1994 LIPID PANEL 1994 PNEUMOCOCCAL VACCINES (0-49 years) (1 of 2 - PCV) 1995 PAP SMEAR 1997 MAMMOGRAM 2016 COLOGUARD 2021 COLONOSCOPY 2021 COLORECTAL CANCER SCREENING 2021 FIT TEST 2021 FOBT 2021 SIGMOIDOSCOPY 2021 VIRTUAL COLONOSCOPY 2021 DIABETIC EYE EXAM 12/06/2022 URINE MICROALBUMIN/CREATININ E RATIO 12/06/2022 BLOOD PRESSURE 01/19/2025 2024 INFLUENZA VACCINE (#1) 2025 COVID-19 VACCINE ( - 2023-2 5 season) 2025 SMOKING STATUS SCREENING (On ce After 26 Yrs) Completed 01/08/2024 HEPATITIS A VACCINES Aged Out No long er eligible based on patient's age to complete this topic HIB VACCINES Aged Out No longer eligi ble based on patient's age to complete this topic MENINGOCOCCAL VACCINES (ACWY) Aged Out No longer eligible based on patient's age to complete this topic MENINGOCOCCAL VACCINES (B) Aged Out N o longer eligible based on patient's age to complete this topic Medical Devices Not on file Insurance [employer] Care Teams Tower Erector Helper Relationship Specialty Start Date End Date Kathie Rossi MD [address] [place] [address] PCP - General Internal Medicine 12/06/22 Additional Source Comments The information contained in this document represents components of the legal health record. It is not the complete legal health record.[facility]
--- OUTSIDE RECORDS SUMMARY | 2025-05-26 10:36 | XMS_ITS | Encounter Summary ---
Author Organization [facility] Address [address] [place] [address] Phone Care Team Providers Care Emd Special Education Teacher Name Role Phone Kathie Rossi MD Primary Care Provider Reason for Visit * Reason Onset Date Comments Lab Orders Faxed 05/22/2025 Encounter Details Date Type Department Care Team (Late st Contact Info) Description 05/22/2025 Telephone [facility] [address] [place] [address] [place] [address] Marcela Bryant MD [address] [place] [phone] [email or web address] Lab Orders Faxed Social History Tobacco Use Types Packs/Day Years Used Date Smoking Tobacco: Never Passive Smoke Exposure: Never Smokeless Tobacco: Never Alcohol Use Standard Drinks/Week Comments Yes 0 [...] on file Sexual Orientation Not on file documented as of this encounter Progress Notes * Miracle Prasad - 05/22/2025 1:00 PM EDT Patient asked for their labs (07/22/24) be faxed to [facility] [phone] Printed and Faxed documented in this encounter Plan of Treatment Upcoming Encounters Date Type Department Care Team (Late st Contact Info) Description 05/28/2025 8:20 AM EDT Office Visit [facility] [address] [place] [address] [place] [address] Marcela Bryant MD [address] [place] [phone] [email or web address] documented as of this encounter Visit Diagnoses Not on filedocumented in this encounter Care Teams Emd Special Education Teacher Relationship Specialty Start Date End Date Kathie Rossi MD [address] [place] [address] PCP - General Internal Medicine 12/06/22 documented as of this encounter Additional Source Comments The information contained in this document represents components of the legal health record. It is not the complete legal health record.[facility]
--- OUTSIDE RECORDS SUMMARY | 2025-05-26 10:36 | XMS_ITS | Clinical Summary ---
Author Organization [facility] ity Address [address] [place] [address] Care Team Providers Care Planner Chief Name Role Phone Unavailable Primary Care Provider Unavailabl e Social History Tobacco Use Types Packs/Day Years Used Date Smoking Tobacco: Never Assessed Comments Unknown Sex and Gender Information Value Date Recorded Sex Assigned at Not on file Legal Sex Female 9:43 PM EST Gender Identity Not on file Sexual Orientation Not on file Plan of Treatment Health Maintenance Due Date Last Done Comments Breast Cancer Screening 1975 DTaP,Tdap,and Td Vaccines (1 - Tdap) 1995 Hepatitis B Vaccines (1 of 3 - 19+ 3-dose series) 1995 Cervical Cancer Screening: P ap Smear 1997 Depression Screening 08/28/2024 COVID-19 Vaccine (1 - 2023-2 5 season) 2025 Influenza Vaccine (#1) 2025 RSV Immunization Adult Patie nts (1 - 1-dose 75+ series) 2051 HIB Vaccines Aged Out No longer eligi ble based on patient's age to complete this topic HPV Vaccines Aged Out No longer eligi ble based on patient's age to complete this topic Hepatitis A Vaccines Aged Out No long er eligible based on patient's age to complete this topic IPV Vaccines Aged Out No longer eligi ble based on patient's age to complete this topic MMR Vaccines Aged Out No longer eligi ble based on patient's age to complete this topic Meningococcal ACWY Vaccine Aged Out N o longer eligible based on patient's age to complete this topic Meningococcal B Vaccine Aged Out No l onger eligible based on patient's age to complete this topic Pneumococcal Vaccine: Pediat rics (0 to 5 Years) and At-Risk Patients (6 to 49 Years) Aged Out No longer eligible b ased on patient's age to complete this topic RSV Immunization Patients Un janette 20 months Aged Out No longer eligible b ased on patient's age to complete this topic Varicella Vaccines Aged Out No longer eligible based on patient's age to complete this topic
[2025-05-26 11:05] LABS: Alanine Aminotransferase 16 U/L (0-31); Albumin Level 4.3 g/dL (3.5-5.0); Alkaline Phosphatase 60 U/L (39-117); Anion Gap 9 (12-20); Aspartate Amino Transferase 23 U/L (5-31); Blood Urea Nitrogen 17 mg/dL (9-16); Calcium 9.3 mg/dL (8.4-10.2); Carbon Dioxide 27 mmol/L (22-29); Chloride 110 mmol/L (96-108); Estimated Glomerular Filt Rate > 60; Potassium 4.0 mmol/L (3.3-5.1); Sodium 142 mmol/L (135-145); Total Protein 6.9 g/dL (6.5-8.0)
== END 2025-05-26 09:42 | disposition home or self-care (01) ==
LOC: HO.LAB 09:41
PROVIDERS: PCP Internal Medicine; Visit Provider Internal Medicine
DX: E10.649 Type 1 diabetes mellitus with hypoglycemia without coma (principal)
CPT/HCPCS: 36415; 80053; 83036; 84443

== ENCOUNTER 2025-05-29 11:42 | Outpatient (AMB) | payer OTHER, SELFPAY ==
--- OUTSIDE RECORDS SUMMARY | 2025-05-28 08:20 | XMS_ITS | Encounter Summary ---
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 (Primary Dx) Social History Tobacco Use Types Packs/Day Years [...] on file documented as of this encounter Last Filed Vital Signs Vital Sign Reading Time Taken Comments Blood Pressure 100/64 05/28/2025 8:10 AM EDT Pulse 67 05/28/2025 8:10 AM EDT Temperature - - Respiratory Rate - - Oxygen Saturation - - Inhaled Oxygen Concentration - - Weight 56 kg (123 lb 6.4 oz) 05/28/2025 8:10 AM EDT Height 153.7 cm (5' 0.51 ) 05/28/2025 8:10 AM ED T Body Mass Index 23.7 05/28/2025 8:10 AM EDT documented in this encounter Miscellaneous Notes * Assessment & Plan Note - Marcela Bryant MD - 05/28/2025 8:53 AM EDT Associated Problem(s): 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 Good control by pump and CGM download. Overnight blood sugars are excellent with automated insulin delivery using sleep mode. Some postprandial spikes especially after breakfast and lunch while using insulin to carb ratio of 1:8. No frequent or severe hypoglycemia. History of hypoglycemia unawareness improved. No other complications. -Would increase meal bolus with breakfast and lunch by trying insulin to carb ratio of 1:7. If 2-hour postprandial blood sugars remain over 180. Continue to adjust insulin to carb ratio to 1-6, 1-5. -Add some resistance exercises while limited walking/running related to left carlin pain. -Recheck fasting lipids and urine microalbumin with next A1c in 3 months. Review results through [place]. 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 Expected: 08/25/2025 (Approximate), Expires: 05/28/2026 Hemoglobin A1c Lab Routine 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 Expected: 08/25/2025 (Approximate), Expires: 05/28/2026 Microalbumin/creatinine ratio, random urine Lab Routine 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 Expected: 08/25/2025 (Approximate), Expires: 05/28/2026 Lipid panel Lab Routine 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 It is not the complete legal health record.[facility]
--- NOTE | 2025-05-29 11:47 | A.OFFVIS_ITS ---
Intake Visit Reasons: Diabetes Type 1 Allergies No Known Allergies Allergy (Verified 02/06/24 08:38) HPI Comments Details: 49 years old female with past medical history of type 1 diabetes, seen briefly in the practice as patient had a pump malfunction and was requiring insulin her tandem pump was empty and she did not had backup plan at hand. She has had this happen once before, she will be in contact with the pump company. 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 Celiac disease Colon cancer screening Family history of thyroid disease DUB (dysfunctional uterine bleeding) Shoulder pain, right Iron deficiency anemia Eczema of both hands Diabetes mellitus, insulin dependent (IDDM), controlled Surgical History No significant past surgical history Family History Father Hx of hyperlipidemia History of hypertension Hx of diabetes mellitus Mother Hx of hyperlipidemia History of hypertension Hx of diabetes mellitus Sister Hypothyroid Arthritis Social History Household Members: Spouse and Children Housing: House Alcohol intake: never Patient Tobacco Use Status: Never used Tobacco e-Cigarette/Vaping Use: Never Used service: No Current occupational status: employed Current occupation: nutricionist Sexual orientation: Straight/Heterosexual Gender identity: Female Cognitive needs: No Hearing needs: No Vision needs: Yes Female Reproductive History Menstrual Age of Menarche: 14 Office Meds Humalog U-100 Insulin 100 unit/mL subcutaneous solution Performing Provider: Gabriela Garcia MD Performing Location: [facility] Endocrinology Administered by: Jocelynn Negrete RN on 05/29/25 11:47 Dose Route Admin Location Dispensed Lot Number Expiration Date [facility][NOTE 3] Order Caller 140 unit subcut tandem pump 1.4 mL [id number] 08/08/25 5929-0087-06 [employer] Total Dispensed Waste 1.4 mL 0 % Comments: Insulin lispro used to fill cartridge for tandem pump. Assessment & Plan Assessment & Plan (1) Diabetes mellitus, insulin dependent (IDDM), controlled: Comment: Insulin pump-expertise Category: Medical Plan Type 1 diabetes on insulin pump Provided the patient with 140 units of lispro for her insulin pump to avoid DKA Advised the patient to call tandem and discuss possibility of needing a new pump given that this pump is already 5 years old. Orders: Orders AMB Insulin Lispro Injection Practice Supplied Today E10.9 - Type 1 diabetes mellitus without complications Coding Diagnoses Diabetes mellitus, insulin dependent (IDDM), controlled
--- OUTSIDE RECORDS SUMMARY | 2025-05-29 13:31 | XMS_ITS | Encounter Summary ---
Author Organization [facility] Address [address] [place] [address] Phone Care Team Providers Care Plycor Operator Name Role Phone Kathie Rossi MD Primary Care Provider Reason for Visit * Reason Onset Date Comments Lab Orders Faxed 05/22/2025 Encounter Details Date Type Department Care Team (Late st Contact Info) Description 05/22/2025 Telephone [facility] [address] [place] [address] [place] [address] Marcela Bryant MD [address] [place] [phone] [email or web address] Lab Orders Faxed Social History Tobacco Use [...] as of this encounter Progress Notes * Jamia Moreno MA - 05/27/2025 3:16 PM EDT Uploaded to media * Miracle Prasad - 05/22/2025 1:00 PM EDT Patient asked for their labs (07/22/24) be faxed to 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 TSH WITH REFLEX Routine 05/26/2025 3:15 PM EDT 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 HEMOGLOBIN A1C Routine 05/26/2025 3:15 PM EDT 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 documented in this encounter Results * Comprehensive metabolic panel (05/26/2025 3:16 PM EDT) Blood us Marcela Bryant MD LAB BLOOD ORDERABLES Final Res ult Performing Organization Address [facility]/ZIP Co de Phone Number [address] [address] * TSH with reflex (05/26/2025 3:15 PM EDT) Blood us Marcela Bryant MD LAB BLOOD ORDERABLES Final Res ult Performing Organization Address [facility]/ZIP Co de Phone Number [address] [address] * Hemoglobin A1c (05/26/2025 3:15 PM EDT) Blood us Marcela Bryant MD LAB BLOOD ORDERABLES Final Res ult [facility] [address] [place] [address] documented in this encounter Visit Diagnoses Diagnosis 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 It is not the complete legal health record.[facility]
--- OUTSIDE RECORDS SUMMARY | 2025-05-29 13:31 | XMS_ITS | Clinical Summary ---
Author Organization [facility] Address [address] [place] [phone] Phone Care Team Providers Care Forensic Toxicologist Name Role Phone Kathie Rossi MD Primary [...] to with Dexcom G6. Pump supplier is [employer]. Dexcom supplies from her pharmacy Assessment & Plan (05/28/2025 8:53 AM EDT): Good control by pump and CGM download. [...] A1c in 3 months. Review results through [place]. -Follow-up in 1 year or as needed prior Assessment & Plan (08/03/2024 7:35 PM EST): [...] blood sugars -Labs soon. Will review through [place]. -Follow-up in 6 months Assessment & Plan (01/08/2024 9:30 AM EDT): Good control by tandem t:slim X to Dexcom G7 download. Last A1c slightly higher at 7.3% recently. 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 (Primary Dx) 05/22/2025 Telephone [facility] [address] [place] [address] Marcela Bryant MD Lab Orders Faxed from [...] Pulse 67 05/28/2025 8:10 AM EDT Temperature 36.5 C (97.7 F) 01/08/2024 8:10 AM EDT Respiratory Rate - - Oxygen Saturation 98% 01/08/2024 8:10 AM EDT Inhaled Oxygen Concentration - - Weight 56 kg (123 lb 6.4 oz) 05/28/2025 8:10 AM EDT Height 153.7 cm (5' 0.51 ) 05/28/2025 8:10 AM ED T Body Mass Index 23.7 05/28/2025 8:10 AM EDT Plan of Treatment Upcoming Encounters Date Type Department Care Team (Late st Contact Info) Description 06/01/2026 8:20 AM EDT Office Visit [facility] [address] [place] [phone] Marcela Bryant MD [address] [place] [phone] [email or web address] Health Maintenance Due Date Last Done Comments [...] EXAM 12/06/2022 URINE MICROALBUMIN/CREATININ E RATIO 12/06/2022 INFLUENZA VACCINE (#1) 2025 COVID-19 VACCINE ( - 2023-2 5 season) 2025 BLOOD PRESSURE 11/26/2025 05/28/2025 SMOKING STATUS SCREENING (On ce After 26 [...] this topic Medical Devices Not on file Procedures Procedure Name Priority Date/Time Associated Diagnosis Comments COMPREHENSIVE METABOLIC PANEL Routine 05/26/2025 3:16 PM EDT 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 TSH WITH REFLEX Routine 05/26/2025 3:15 PM EDT 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 HEMOGLOBIN A1C Routine 05/26/2025 3:15 PM EDT 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 from Last 3 Months Results * Comprehensive metabolic panel (05/26/2025 3:16 PM EDT) Blood Marcela Bryant MD LAB BLOOD ORDERABLES Final Res ult Performing Organization Address [facility] Co de Phone Number [address] [address] * TSH with reflex (05/26/2025 3:15 PM EDT) Blood Marcela Bryant MD LAB BLOOD ORDERABLES Final Res ult Performing Organization Address [facility]/ZIP Co de Phone Number [address] [address] * Hemoglobin A1c (05/26/2025 3:15 PM EDT) Blood Marcela Bryant MD LAB BLOOD ORDERABLES Final Res ult Performing Organization Address [facility] Co de Phone Number [address] [address] from Last 3 Months Insurance [employer] Care Teams Forensic Toxicologist Relationship Specialty Start Date End Date Kathie Rossi MD [address] [place] [address] PCP - General Internal Medicine 12/06/22 Additional Source Comments The information contained in this document represents components of the legal health record. It is not the complete legal health record.[facility]
--- OUTSIDE RECORDS SUMMARY | 2025-05-29 13:31 | XMS_ITS | Clinical Summary ---
Author Organization [facility] ity Address [address] [place] [address] Care Team Providers Care Cancer Genetics Assistant Name Role Phone Unavailable Primary Care Provider [...]
== END 2025-05-29 11:49 | disposition home or self-care (01) ==
LOC: HO.ENCR 11:43
PROVIDERS: PCP Internal Medicine; Visit Provider Student in an Organized Health Care Education/Training Program
DX: E10.9 Type 1 diabetes mellitus without complications (principal)

== ENCOUNTER → 2025-05-29 11:42 | Outpatient (BNVA) | payer OTHER, SELFPAY | PROVIDERS: PCP Internal Medicine; Visit Provider Student in an Organized Health Care Education/Training Program | DX: E10.9 Type 1 diabetes mellitus without complications (principal) | CPT/HCPCS: 96372; J1815 ==